=== PATIENT | female | born 1950 | race Caucasian/White ===

== ENCOUNTER → 2018-02-08 12:11 | Outpatient (REF) | payer BC, SELFPAY ==
[2018-02-08 13:16] LABS: Bilirubin Negative (Negative); Blood Small (Negative); Clarity Clear; Glucose Negative (Negative); Ketones Negative (Negative); Leukocyte Esterase Small (Negative); Nitrite Positive (Negative); Specific Gravity 1.015 (1.005-1.025); Urobilinogen 0.2 EU/dL (Up TO 0.2)
[2018-02-08 13:26] LABS: Bacteria Moderate HPF (Negative); C & S Indicated? Yes; Crystals Negative HPF (Negative); Epithelial Cells Few HPF (Negative); Mucus Moderate (Negative); Other Cells Few Renal (Negative); RBC 0-2 (0-2); WBC 20-50 HPF (0-5)
== END ==
LOC: NCHCN 12:11
PROVIDERS: PCP Family Medicine; Visit Provider Family Medicine
DX: R35.0 Frequency of micturition (principal); R10.9 Unspecified abdominal pain
CPT/HCPCS: 87077; 81003; 81015; 87086; 87186

== ENCOUNTER 2018-02-13 06:05 | Outpatient (RCR) | payer BC, SELFPAY ==
[2018-02-13] MEDS: Normal Saline Flush 10 ML SYR IVP (13:30)
[2018-02-14] MEDS: Normal Saline Flush 10 ML SYR IVP (13:11)
[2018-02-14 13:29] LABS: Anion Gap 7.5 mmol/L (3-11); BUN 11 mg/dL (7-18); CO2 27.5 mmol/L (21.0-32.0); Chloride 106 mmol/L (98-107); Glucose 94 mg/dL (70-100); Potassium 3.4 mmol/L (3.5-5.1); Sodium 141 mmol/L (136-145)
[2018-02-15] MEDS: Normal Saline Flush 10 ML SYR IVP (13:25)
[2018-02-16] MEDS: Normal Saline Flush 10 ML SYR IVP (13:10)
[2018-02-17] MEDS: Normal Saline Flush 10 ML SYR IVP (12:50)
[2018-02-18] MEDS: Normal Saline Flush 10 ML SYR IVP (13:04)
[2018-02-19] MEDS: Normal Saline Flush 10 ML SYR IVP (12:57)
== END 2018-03-10 ==
LOC: INF 08:06
PROVIDERS: PCP Family Medicine; Visit Provider Family Medicine
DX: N11.1 Chronic obstructive pyelonephritis (principal); A41.9 Sepsis, unspecified organism
CPT/HCPCS: 36415; 80048; 96365; J1335

== ENCOUNTER 2018-03-24 00:10 | Outpatient (CLI) | payer BC, SELFPAY ==
--- NOTE | 2018-03-24 08:50 | DI.US_ITS ---
SYMPTOM/DIAGNOSIS: LT URETERAL STONE, N20.1, ? HYDRONEPHROSIS, F/U URETEROSCOPY RENAL ULTRASOUND: Comparison is made with 02/09/[address] The kidneys are normal in size and show normal parenchymal thickness and echogenicity. No hydronephrosis or renal calculi are identified. The prevoid bladder volume measured 31 cc's. There is no postvoid residual. No bladder calculi or bladder mass is seen. There are no perinephric collections or free fluid in the pelvis. The liver is noted to show fatty infiltration. IMPRESSION: No evidence of hydronephrosis or other acute abnormality.
== END 2018-03-24 00:30 ==
PROVIDERS: PCP Family Medicine; Visit Provider Urology
DX: N20.1 Calculus of ureter (principal)
CPT/HCPCS: 76770

== ENCOUNTER 2018-04-03 12:26 | Outpatient (REF) | payer BC, SELFPAY ==
--- NOTE | 2018-04-03 09:50 | SKI_PTH ---
PATIENT: Leslie Magana LOC: [facility] U#:[id number] AGE/SX: 67/F ROOM: RE04/03/[address]: SHRUTHI Garza : 1950 BED: DIS: 04/03/2018 SPEC #: [id number] RECD: 04/03/18 18:10 STATUS: ALETHEA REJaz #: [id number] RAFIA: 04/03/18 09:[address]: Jarett Griffin DEPT: Surgical Specimen RECD BY: Nirali Willis ENTERED: 04/03/18 18:11 SP TYPE: MITCH LORENZANA DR: Jeni Mcgovern Tissues: 1 - SKIN BIOPSY(SHAVE/PUNCH) Procedures: SKIN LEVEL 4 Comments: [id number]
== END 2018-04-03 12:46 ==
LOC: LBN 12:26
PROVIDERS: PCP Family Medicine; Visit Provider Physician Assistant
DX: L82.1 Other seborrheic keratosis (principal)
CPT/HCPCS: 88305

== ENCOUNTER 2018-05-25 09:07 | Outpatient (REF) | payer BC, SELFPAY ==
--- NOTE | 2018-05-25 08:30 | PAPFT_PTH ---
PATIENT: Leslie Magana LOC: [facility] U#:[id number] AGE/SX: 68/F ROOM: RE05/25/[address]: Jeni Mcgovern : 1950 BED: DIS: 05/25/2018 SPEC #: [id number] RECD: 05/25/18 12:52 STATUS: ALETHEA REQ #: [id number] RAFIA: 05/25/18 08:[address]: Jeni Mcgovern DEPT: [facility] Cytology RECD BY: Nirali Willis Tissues: 1 - CX/ENDOCX FOR PAP SMEARS Procedures: PAP THIN PREP/UVM Screening HPV DNA PROBE Comments: [id number]
[2018-05-25 14:00] LABS: Bilirubin Negative (Negative); Blood Trace-lysed (Negative); Clarity Cloudy; Glucose Negative (Negative); Ketones Negative (Negative); Leukocyte Esterase Trace (Negative); Nitrite Positive (Negative); Specific Gravity >= 1.030 (1.005-1.025); Urobilinogen 0.2 EU/dL (Up TO 0.2); pH 5.5 (5-8)
[2018-05-25 14:35] LABS: Bacteria Many HPF (Negative); Crystals Many Amorphous HPF (Negative); Epithelial Cells Rare HPF (Negative); RBC 0-2 (0-2)
[2018-05-25 14:36] LABS: C & S Indicated? Yes; Casts Negative LPF (Negative); Mucus Negative (Negative)
== END 2018-05-25 09:27 ==
LOC: NCHCN 09:07
PROVIDERS: PCP Family Medicine; Visit Provider Family Medicine
DX: N20.0 Calculus of kidney (principal); Z12.4 Encounter for screening for malignant neoplasm of cervix; Z11.51 Encounter for screening for human papillomavirus (HPV)
CPT/HCPCS: 87077; 88142; 81003; 81015; 87086; 87186; 87624

== ENCOUNTER 2018-06-08 01:27 | Outpatient (CLI) | payer BC, SELFPAY ==
--- NOTE | 2018-06-08 16:10 | DI.MAMMO_ITS ---
SYMPTOMS/DIAGNOSIS: SCREENING, Z12.31 MAMMOGRAM: Mammograms were interpreted according to the usual protocol including computer analysis with CAD system, tomosynthesis and C view imaging. The breasts are heterogeneously dense with multiple focal areas of asymmetric density seen in both breasts. No dominant mass or clumped microcalcifications seen. Examination is compared with multiple previous examinations including May 2017 and there has been no gross interval change in appearance in comparison with the previous studies. CONCLUSION: No specific evidence of malignancy at this time. Routine screening examinations are suggested at yearly intervals in this age group according to the ACS/ACR guidelines. Category 1, breast density category C. MQSA ASSESSMENT OF FINDINGS: Negative. Category 1. Patient will receive a letter notifying them of these results. Bi-RADS category C. The breasts are heterogeneously dense, which may obscure small masses.
== END 2018-06-08 01:47 ==
PROVIDERS: PCP Family Medicine; Visit Provider Family Medicine
DX: Z12.31 Encounter for screening mammogram for malignant neoplasm of breast (principal)
CPT/HCPCS: 77063; 77067

== ENCOUNTER 2018-06-26 01:53 | Outpatient (CLI) | payer BC, SELFPAY ==
[2018-06-26 15:47] LABS: Bilirubin Negative (Negative); Blood Negative (Negative); Clarity Sl Cloudy; Glucose Negative (Negative); Ketones Trace mg/dL (Negative); Leukocyte Esterase Negative (Negative); Nitrite Positive (Negative); Specific Gravity >= 1.030 (1.005-1.025); Urobilinogen 0.2 EU/dL (Up TO 0.2); pH 5.5 (5-8)
[2018-06-26 16:54] LABS: Bacteria Many HPF (Negative); C & S Indicated? Yes; Casts Negative LPF (Negative); Crystals Negative HPF (Negative); Epithelial Cells Few HPF (Negative); Mucus Negative (Negative); Other Cells Rare Renal (Negative); RBC Negative (0-2); WBC Negative HPF (0-5)
== END 2018-06-26 02:13 ==
PROVIDERS: PCP Family Medicine; Visit Provider Family Medicine
DX: N20.0 Calculus of kidney (principal)
CPT/HCPCS: 87077; 81003; 81015; 87086; 87186

== ENCOUNTER 2019-07-13 13:00 | Outpatient (CLI) | payer MEDICARE, BC, SELFPAY | END 2019-07-13 13:20 | PROVIDERS: PCP Family Medicine; Visit Provider Urology | DX: R82.71 Bacteriuria (principal) | CPT/HCPCS: 81003; 99213 ==

== ENCOUNTER 2019-07-23 17:46 | Outpatient (REF) | payer MEDICARE, SELFPAY ==
[2019-07-23 19:08] LABS: ALT 95 U/L (14-59); AST 55 U/L (15-37); Albumin 3.8 g/dL (3.4-5.0); Alkaline Phosphatase 113 U/L (46-116); Anion Gap 11.1 mmol/L (3-11); BUN 11 mg/dL (7-18); Bilirubin, Total 0.6 mg/dL (0.2-1.0); CO2 25.9 mmol/L (21.0-32.0); CREATININE 0.77 mg/dL (0.55-1.02); Calcium 8.5 mg/dL (8.5-10.1); Chloride 108 mmol/L (98-107); Glucose 123 mg/dL (74-106); Potassium 3.7 mmol/L (3.5-5.1); Sodium 145 mmol/L (136-145); Total Protein 6.9 g/dL (6.4-8.2)
[2019-07-23 19:09] LABS: Vitamin D 25 Total 10.8 ng/ml (30-100)
[2019-07-25 12:10] LABS: Parathyroid Hormone,Intact 74 pg/mL (19-88)
== END 2019-07-23 18:06 ==
LOC: NCHCN 17:46
PROVIDERS: PCP Family Medicine; Visit Provider Family Medicine
DX: M81.0 Age-related osteoporosis without current pathological fracture (principal); Z79.899 Other long term (current) drug therapy
CPT/HCPCS: 80053; 82306; 83970

== ENCOUNTER 2019-08-21 01:03 | Outpatient (CLI) | payer MEDICARE, BC, SELFPAY ==
--- NOTE | 2019-08-21 08:12 | DI.MAMMO_ITS ---
EXAM: MAMMO SCREENING CLINICAL HISTORY: SCREENING, Z12.21 TECHNIQUE: Mammograms were interpreted according to the usual protocol including computer analysis w [employer] CAD system, tomosynthesis and C-view imaging. COMPARISON: 2009 through 2017 FINDINGS: The breasts are composed of heterogeneously dense fibroglandular densities, Breast Density category C . Right breast: No suspicious masses or suspicious microcalcifications are seen. No skin thickening or abnormal axillary lymph nodes are seen. There has been no significant change from prior exams. Left breast: There is an area of focal nodular asymmetry in the medial left breast centrally. No def inite corresponding abnormality is seen on the MLO view. There is dense tissue in the superior left breast. No suspicious calcifications are seen. Spot compression views are requested for further rohit luation. Ultrasound may also be indicated at that time. IMPRESSION: Right breast: BIRADS Category 1, negative mammogram. Yearly screening mammography is recommended. Left breast: BI-RADS Cat 0 - Assessment Incomplete: Need additional imaging evaluation BREAST DENSITY: The mammogram demonstrates the patient's breast tissue is dense. Dense breast tissue is very common and is not abnormal but dense breast tissue can make it harder to find cancer on a ma mmogram. Also, dense breast tissue may increase breast cancer risk. This information about the result of the mammogram report was provided to the patient to raise their awareness. Use this report when y ou speak with the patient about their risks for breast cancer, which includes their family history. A t that time, you may recommend additional screening tests (Ultrasound or MRI) as they might be useful based on their risk. A negative radiographic report should not delay biopsy if a dominant or clinically suspicious mass is present. Up to ten percent of cancers are not identified on mammography. A negative report may reinforce clinical impression. Adenosis and dense breasts may obscure an underlying neoplasm. False positive reports average 6 to 10%.
== END 2019-08-21 01:23 ==
PROVIDERS: PCP Family Medicine; Visit Provider Family Medicine
DX: Z12.31 Encounter for screening mammogram for malignant neoplasm of breast (principal); R92.8 Other abnormal and inconclusive findings on diagnostic imaging of breast
CPT/HCPCS: 77063; 77067

== ENCOUNTER 2019-08-24 03:40 | Outpatient (CLI) | payer MEDICARE, BC, SELFPAY ==
--- NOTE | 2019-08-24 | DI.MAMMO_ITS ---
EXAM: MG MAMMO SCREEN CALL BACK UNI CLINICAL HISTORY: F/U ABNL MAMMO, FOCAL NODULAR ASYMMETRY MEDIAL LT BREAST CENTRALLY. TECHNIQUE: Craniocaudal and mediolateral oblique Full Field Digital Mammography views of the left br east with Computer Aided Diagnosis followed by Tomosynthesis and left breast ultrasound. COMPARISON: Priors available for comparison. FINDINGS: Mammography/Tomosynthesis: Masses/Architectural Distortion: There is an ovoid density in the posterior medial left breast seen o n the additional views which appears stable. Nonspecific nodularity of the medial left breast is aga in noted. No suspicious masses or microcalcifications are seen. Microcalcifications: No suspicious pleomorphic-type are seen. Skin Thickening/Nipple Retraction: None. Left breast US: Echotexture: Normal appearance of the glandular tissue. Shadowing: No suspicious foci. Cyst: None. Solid lesions: None seen. Ductal dilation: None. IMPRESSION: 1. No definite evidence for malignancy at this time. 2. A follow-up six-month left mammogram is recommended for re-evaluation. BI-RADS Cat 3 - 6 month - Probably Benign Finding: Recommend follow-up mammography in 6 months Breast Density - Category C - Heterogeneously dense The findings were discussed with the patient on the date of the examination. The mammogram demonstrates the patient's breast tissue is dense. Dense breast tissue is very common a nd is not abnormal but dense breast tissue can make it harder to find cancer on a mammogram. Also, de nse breast tissue may increase their breast cancer risk. This information about the result of the [facility] mogram report was provided to the patient to raise their awareness. Use this report when you speak wi th the patient about their risks for breast cancer, which includes their family history. At that time , you may recommend for more screening tests (Ultrasound or MRI) as they might be useful based on the ir risk. A negative radiographic report should not delay biopsy if a dominant or clinically suspicious mass is present. Up to ten percent of cancers are not identified on mammography. A negative report may reinforce clinical impression. Adenosis and dense breasts may obscure an underlying neoplasm. False positive reports average 6 to 10%. Patient will receive a letter notifying them of these results.
== END 2019-08-24 04:00 ==
PROVIDERS: PCP Family Medicine; Visit Provider Family Medicine
DX: Z12.31 Encounter for screening mammogram for malignant neoplasm of breast (principal); R92.8 Other abnormal and inconclusive findings on diagnostic imaging of breast; N60.82 Other benign mammary dysplasias of left breast
CPT/HCPCS: 76642; 77063; 77067

== ENCOUNTER 2020-01-07 19:59 | Outpatient (REF) | payer MEDICARE, BC, SELFPAY ==
[2020-01-07 19:36] LABS: HCT 45.1 % (36.0-46.0); HGB 14.9 g/dL (12.0-15.5); Mean Corpuscular Hemoglobin 29.5 pg (27.0-33.0); Mean Corpuscular Volume 89.3 fL (80-95); Mean Platelet Volume 10.9 fL (8.0-11.0); Platelet Count 326 x1000/uL (130-400); RBC 5.05 m/cumm (4.00-5.20); RBC Distribution Width 13.9 % (11.7-14.6); White Blood Cell Count 7.76 k/cumm (4.4-10.8)
[2020-01-07 20:05] LABS: Iron 112 ug/dL (50-170); Total Iron Binding Capacity 363 ug/dL (250-450); Transferrin Sat 31 % (15-50)
[2020-01-07 20:09] LABS: Hemoglobin A1C 6.3 % (3.8-5.6)
[2020-01-07 20:14] LABS: ALT 66 U/L (14-59); AST 37 U/L (15-37); Albumin 4.2 g/dL (3.4-5.0); Alkaline Phosphatase 108 U/L (46-116); Bilirubin, Direct 0.12 mg/dL (0.00-0.20); Bilirubin, Total 0.7 mg/dL (0.2-1.0); Ferritin 147 ng/mL (8-252); Total Protein 7.3 g/dL (6.4-8.2)
[2020-01-09 11:17] LABS: Hepatitis B Surface Ag Negative (Negative)
[2020-01-09 11:20] LABS: HBs Antibody, Quant 4.8 mIU/mL (See Note); Hepatitis B Surface Ab Negative (See Note)
[2020-01-09 12:01] LABS: Hepatitis C Ab w Rflx HCV PCR Negative (Negative)
[2020-01-09 12:03] LABS: Hep A Total Ab w Rflx IgM Positive (Negative)
[2020-01-10 11:52] LABS: Hep A Antibody IgM Negative (Negative)
== END 2020-01-07 20:19 ==
LOC: NCHCN 19:59
PROVIDERS: PCP Family Medicine; Visit Provider Family Medicine
DX: K76.0 Fatty (change of) liver, not elsewhere classified (principal); R79.89 Other specified abnormal findings of blood chemistry; E55.9 Vitamin D deficiency, unspecified; Z11.59 Encounter for screening for other viral diseases; R73.09 Other abnormal glucose; Z01.84 Encounter for antibody response examination
CPT/HCPCS: 80076; 85027; 86706; 86709; 86803; 87340; 82728; 83036; 83540; 83550; 86704

== ENCOUNTER 2020-01-21 19:22 | Outpatient (REF) | payer MEDICARE, BC, SELFPAY ==
[2020-01-24 04:54] LABS: Vitamin D 25 Total 47.9 ng/ml (30-100)
== END 2020-01-21 19:42 ==
LOC: NCHCN 19:22
PROVIDERS: PCP Family Medicine; Visit Provider Family Medicine
DX: E55.9 Vitamin D deficiency, unspecified (principal)
CPT/HCPCS: 82306

== ENCOUNTER 2020-03-06 02:23 | Outpatient (CLI) | payer MEDICARE, BC, SELFPAY ==
--- NOTE | 2020-03-06 14:39 | DI.MAMMO_ITS ---
EXAM: MG MAMMO DIAGNOSTIC UNI CLINICAL HISTORY: DIAGNOSTIC, F/U ABNL MAMMO, 6 MONTH F/U,R92.8 TECHNIQUE: Mammograms were interpreted according to the usual protocol including computer analysis w [employer] CAD system, tomosynthesis and C-view imaging. COMPARISON: FINDINGS: Today's mammogram of the left breast was obtained to follow up in area of nodularity seen medially in left breast on prior mammogram of August 2019. On today's examination the findings are unchanged. No new mass or clumped microcalcification seen. IMPRESSION: No specific evidence of malignancy at this time. I would suggest that routine screening examination s resume with a bilateral mammogram in 6 months. BI-RADS Cat 3 - 6 month - Probably Benign Finding: Recommend follow-up mammography in 6 months Breast Density - Category C - Heterogeneously dense
== END 2020-03-06 02:43 ==
PROVIDERS: PCP Family Medicine; Visit Provider Family Medicine
DX: R92.8 Other abnormal and inconclusive findings on diagnostic imaging of breast (principal); R92.2 Inconclusive mammogram
CPT/HCPCS: 77061; 77065; G0279

== ENCOUNTER 2020-07-25 16:04 | Outpatient (REF) | payer MEDICARE, BC, SELFPAY ==
[2020-07-25 13:52] LABS: HGB 14.2 g/dL (11.2-15.7); MCHC 32.3 % (32.0-36.0); MPV 10.5 fL (8.0-11.0); Platelet Count 290 10^3/uL (130-400); RBC 4.89 10^6/uL (3.93-5.22); RDW 12.9 % (11.7-14.6); RDW-SD 42.3 fL; WBC 6.86 10^3/uL (4.4-10.8)
[2020-07-25 14:22] LABS: ALT 38 U/L (14-59); AST 24 U/L (15-37); Albumin 4.1 g/dL (3.4-5.0); Alkaline Phosphatase 109 U/L (46-116); Anion Gap 7.5 mmol/L (3-11); BUN 16 mg/dL (7-18); Bilirubin, Total 0.6 mg/dL (0.2-1.0); CO2 27.5 mmol/L (21.0-32.0); Calcium 9.7 mg/dL (8.5-10.1); Chloride 104 mmol/L (98-107); Glucose 99 mg/dL (74-106); Potassium 4.3 mmol/L (3.5-5.1); Sodium 139 mmol/L (136-145); TSH (W/Ref FT4) 2.13 uIU/mL (0.36-3.74); Total Protein 7.3 g/dL (6.4-8.2)
[2020-07-25 14:32] LABS: Hemoglobin A1C 5.9 % (<5.7)
[2020-07-28 05:51] LABS: Vitamin D 25 Total 36.4 ng/ml (30-100)
== END 2020-07-25 16:24 ==
LOC: NCHCN 16:04
PROVIDERS: PCP Family Medicine; Visit Provider Family Medicine
DX: E55.9 Vitamin D deficiency, unspecified (principal); R73.03 Prediabetes; R63.4 Abnormal weight loss; Z00.00 Encounter for general adult medical examination without abnormal findings
CPT/HCPCS: 80053; 82306; 85027; 83036; 84443

== ENCOUNTER → 2020-08-26 15:25 | Outpatient (BNVA) | payer MEDICARE, SELFPAY | PROVIDERS: PCP Family Medicine; Referring Provider Family Medicine; Visit Provider Nurse Practitioner Gerontology | DX: N10 Acute pyelonephritis (principal) | CPT/HCPCS: 81003; 99213 ==

== ENCOUNTER 2020-10-07 02:33 | Outpatient (CLI) | payer MEDICARE, BC, SELFPAY ==
--- NOTE | 2020-10-07 | DI.MAMMO_ITS ---
EXAM: MAMMO SCREENING CLINICAL HISTORY: SCREENING, Z12.31 TECHNIQUE: Mammograms were interpreted according to the usual protocol including computer analysis w [employer] CAD system, tomosynthesis and C-view imaging. COMPARISON: 2010 through 2019 FINDINGS: The breasts are composed of heterogeneously dense fibroglandular densities, Breast Density category C . No suspicious masses or suspicious microcalcifications are seen. Vascular calcifications are inciden tally noted. No skin thickening or abnormal axillary lymph nodes are seen. There has been no significant change from prior exams. IMPRESSION: BI-RADS Category 1, Negative mammogram. Yearly screening mammography is recommended. Breast Density Category C, heterogeneously Dense. The mammogram demonstrates the patient's breast tissue is dense. Dense breast tissue is very common a nd is not abnormal but dense breast tissue can make it harder to find cancer on a mammogram. Also, de nse breast tissue may increase breast cancer risk. This information about the result of the mammogram report was provided to the patient to raise their awareness. Use this report when you speak with the patient about their risks for breast cancer, which includes their family history. At that time, you may recommend additional screening tests (Ultrasound or MRI) as they might be useful based on their r isk. A negative radiographic report should not delay biopsy if a dominant or clinically suspicious mass is present. Up to ten percent of cancers are not identified on mammography. A negative report may reinforce clinical impression. Adenosis and dense breasts may obscure an underlying neoplasm. False positive reports average 6 to 10%.
--- NOTE | 2020-10-07 | DI.DEXA_ITS ---
EXAM: XR DEXA BONE DENSITY W/WO LORRAINE CLINICAL HISTORY: OSTEOPOROSIS, M81.0 TECHNIQUE: Routine DEXA evaluation of the lumbar spine, hip, or forearm. COMPARISON: Prior DEXA scan May 2017 FINDINGS: Performed on a [employer] unit. Lateral image: No compression fracture evident. Lumbar Spine total T-score: -2.7 . Prior 2017 reading was -3.0 Hip total T-score:-1.6. Prior May 2017 reading was also -1.6. Independent reading the level of the femoral neck yields a T-score of -2.6 Forearm total T-score: -3.0 IMPRESSION: Bone mineral density measures in the osteoporosis range. Fracture risk is high. Note: Any spine fracture indicates 5x risk for subsequent spine fracture and 2x risk for subsequent h ip fracture. World Health Organization criteria for BMD interpretation classify patients: Normal...... T- Score at or above -1.0 Osteopenic... T- Score between -1.0 and -2.5 Osteoporosis... T-Score at or below -2.5
== END 2020-10-07 02:53 ==
PROVIDERS: PCP Family Medicine; Visit Provider Family Medicine
DX: Z12.31 Encounter for screening mammogram for malignant neoplasm of breast (principal); M81.0 Age-related osteoporosis without current pathological fracture
CPT/HCPCS: 77063; 77067; 77080

== ENCOUNTER 2021-07-27 15:26 | Outpatient (REF) | payer MEDICARE, SELFPAY ==
[2021-07-27 15:04] LABS: MCH 28.6 pg (27.0-33.0); MCHC 31.1 % (32.0-36.0); MCV 91.8 fL (80-95); MPV 10.5 fL (8.0-11.0); Platelet Count 253 10^3/uL (130-400); RDW 12.8 % (11.7-14.6); RDW-SD 43.2 fL; WBC 5.94 10^3/uL (4.4-10.8)
[2021-07-27 15:20] LABS: Hemoglobin A1C 5.7 % (<5.7)
[2021-07-27 15:21] LABS: ALT 51 U/L (14-59); AST 27 U/L (15-37); Albumin 3.9 g/dL (3.4-5.0); Alkaline Phosphatase 110 U/L (46-116); BUN 19 mg/dL (7-18); Bilirubin, Total 0.4 mg/dL (0.2-1.0); CREATININE 0.8 mg/dL (0.55-1.02); Calcium 8.9 mg/dL (8.5-10.1); Calculated LDL 142 mg/dL (<100); Chloride 103 mmol/L (98-107); Cholesterol 232 mg/dL (<200); Glucose 98 mg/dL (74-106); HDL Cholesterol 55 mg/dL (40-60); Potassium 3.9 mmol/L (3.5-5.1); Sodium 140 mmol/L (136-145); Triglyceride 176 mg/dL (<150)
[2021-07-27 15:53] LABS: Vitamin D 25 Total 36.5 ng/mL (30-100)
== END 2021-07-27 15:27 | disposition home or self-care (01) ==
LOC: NCHCN 15:26
PROVIDERS: PCP Family Medicine; Visit Provider Family Medicine
DX: K76.0 Fatty (change of) liver, not elsewhere classified (principal); R73.03 Prediabetes; E55.9 Vitamin D deficiency, unspecified
CPT/HCPCS: 80053; 80061; 82306; 85027; 83036

== ENCOUNTER → 2021-09-01 09:44 | Outpatient (BNVA) | payer MEDICARE, SELFPAY | PROVIDERS: PCP Family Medicine; Referring Provider Family Medicine; Visit Provider Nurse Practitioner Gerontology | DX: R82.71 Bacteriuria (principal) | CPT/HCPCS: 81003; 99213 ==

== ENCOUNTER 2021-10-09 00:38 | Outpatient (CLI) | payer MEDICARE, SELFPAY ==
--- NOTE | 2021-10-09 10:00 | DI.MAMMO_ITS ---
Exam(s) MAMMO SCREENING EXAM: MAMMO SCREENING CLINICAL HISTORY: SCREENING, Z12.31 TECHNIQUE: Bilateral full field digital CC and MLO mammographic images were obtained with 3D tomosyn thesis and utilizing computer aided detection (CAD). COMPARISON: Available for comparison. FINDINGS: Masses/Architectural Distortion: There is a question of an asymmetric density in the outer left breas t seen on the craniocaudad view 6 cm from the nipple this area should be further evaluated with spot compression views. Microcalcifications: No suspicious pleomorphic-type are seen. Skin Thickening/Nipple Retraction: None. IMPRESSION: 1. Asymmetric density in the outer left breast on the CC view. 2. This area should be further evaluated with a spot compression view. Ultrasound may be indicated a t that time. BI-RADS Category 0 - Assessment Incomplete: Need additional imaging evaluation Breast Density - Category C - Heterogeneously dense Breast density category C or D implies that the patient has dense breast tissue. Dense breast tissue is very common and is not abnormal but dense breast tissue can make it harder to find cancer on a ma mmogram. Also, dense breast tissue may increase their breast cancer risk. This information about the result of the mammogram report was provided to the patient to raise their awareness. Use this report when you speak with the patient about their risks for breast cancer, which includes their family hist ory. At that time, you may recommend for more screening tests (Ultrasound or MRI) as they might be us eful based on their risk. A negative radiographic report should not delay biopsy if a dominant or clinically suspicious mass is present. Up to ten percent of cancers are not identified on mammography. A negative report may reinforce clinical impression. Adenosis and dense breasts may obscure an underlying neoplasm. False positive reports average 6 to 10%. Patient will receive a letter notifying them of these results.
== END 2021-10-09 00:58 ==
PROVIDERS: PCP Family Medicine; Visit Provider Family Medicine
DX: Z12.31 Encounter for screening mammogram for malignant neoplasm of breast (principal); R92.8 Other abnormal and inconclusive findings on diagnostic imaging of breast
CPT/HCPCS: 77063; 77067

== ENCOUNTER → 2021-10-20 01:56 | Outpatient (CLI) | payer MEDICARE, SELFPAY ==
--- NOTE | 2021-10-20 | DI.US_ITS ---
Exam(s) MG MAMMO SCREEN CALL BACK UNI US BREAST LT LIMITED EXAM: MG MAMMO SCREEN CALL BACK UNI and U/S breast LT limited CLINICAL HISTORY: F/U ABNL MAMMO, ASYMMETRIC DENSITY IN OUTER LT BREAST 6 CM FROM NIPPLE. TECHNIQUE: Craniocaudal and mediolateral oblique Full Field Digital Mammography views of the left br east with Computer Aided Diagnosis followed by Tomosynthesis and left breast ultrasound. COMPARISON: Comparison with prior examinations. FINDINGS: Mammography/Tomosynthesis: Masses/Architectural Distortion: None seen. Microcalcifictions: No suspicious pleomorphic-type are seen. Skin Thickening/Nipple Retraction: None. Limited left breast US: Echotexture: Normal appearance of the glandular tissue. Shadowing: No suspicious foci. Cyst: None. Solid lesions: None seen. Ductal dilation: None. IMPRESSION: 1. No evidence of malignancy is noted. 2. Unless there is more urgent need, follow-up screening mammography is recommended, as per [place] [employer] guidelines. 3. The findings were discussed with the patient on the date of the examination. BI-RADS Category 1 - Negative Breast Density - Category C - Heterogeneously dense Breast density Category C or D implies that the patient has dense breast tissue. Dense breast tissue can make it harder to find cancer on a mammogram. Dense breast tissue is also associated with an incr eased risk of breast cancer. This information about the result of the mammogram report was provided to the patient to raise their awareness. Use this report when you speak with the patient about their risks for breast cancer, which includes their family history. At that time, you may recommend additional screening tests (Ultrasoun d or MRI) as these tests may add significant information. A negative radiographic report should not delay biopsy if a dominant or clinically suspicious mass is present. Up to ten percent of cancers are not identified on mammography. A negative report may reinforce clinical impression. Adenosis and dense breasts may obscure an underlying neoplasm. False positive reports average 6 to 10%. Patient will receive a letter notifying them of these results.
== END ==
PROVIDERS: PCP Family Medicine; Visit Provider Family Medicine
DX: Z12.31 Encounter for screening mammogram for malignant neoplasm of breast (principal); R92.8 Other abnormal and inconclusive findings on diagnostic imaging of breast; N64.59 Other signs and symptoms in breast
CPT/HCPCS: 76642; 77063; 77067

== ENCOUNTER 2021-10-29 03:00 | Outpatient (CLI) | payer MEDICARE, SELFPAY | END 2021-10-29 03:01 | disposition home or self-care (01) | LOC: DS 03:01 | PROVIDERS: PCP Family Medicine; Visit Provider Dietitian, Registered ==

== ENCOUNTER 2021-11-06 01:23 | Outpatient (CLI) | payer MEDICARE, SELFPAY ==
--- NOTE | 2021-11-06 13:42 | W.NUTCONSULT ---
Date of service: 11/06/21 Time of Service: 13:42 Nutritional Consult ASSESSMENT: Leslie was referred for nutritional counseling for pre diabetes, osteoporosis and kidney stones. PMH: preDm, fatty infiltration of liver. Meds: include Vitamin D. Diet recall: eats 3 well balanced meals, eats mostly complex carbs, lean protein and healthy fats. Cooks most of meals at home. Exercise: walks 2 miles daily 5'4 135 lbs BMI: 23 Leslie reports losing 30 lbs in last couple of years by starting to walk daily and reduce her intake of sweetened beverages and junk foods. She reports her blood sugars and liver infiltrates have gone back to normal after weight loss. INTERVENTION: Reveiwed with Leslie how to follow diet that helps reduce risk of diabetes, kidney stones and builds bone. Recommend continue to follow current meal plan and continue walking on regular basis in order to keep her weight below 140 lbs. MONITORING AND EVALUATION: no follow up planned at this time. Time Spent in Nutritional Counseling and Treatment: 30
== END 2021-11-06 01:24 | disposition home or self-care (01) ==
LOC: DS 01:23
PROVIDERS: PCP Family Medicine; Visit Provider Dietitian, Registered

== ENCOUNTER 2022-07-22 15:20 | Outpatient (REF) | payer MEDICARE, SELFPAY ==
[2022-07-22 15:52] LABS: HCT 43.4 % (36.0-46.0); HGB 14.1 g/dL (11.2-15.7); MCH 29.3 pg (27.0-33.0); MCHC 32.5 % (32.0-36.0); MCV 90 fL (80-95); MPV 10.6 fL (8.0-11.0); Platelet Count 279 10^3/uL (130-400); RBC 4.82 10^6/uL (3.93-5.22); RDW 12.9 % (11.7-14.6); RDW-SD 42.8 fL; WBC 5.76 10^3/uL (4.4-10.8)
[2022-07-22 17:13] LABS: ALT 58 U/L (14-59); AST 46 U/L (15-37); Albumin 4.1 g/dL (3.4-5.0); Alkaline Phosphatase 115 U/L (46-116); Anion Gap 13.3 mmol/L (3-11); BUN 20 mg/dL (7-18); Bilirubin, Total 0.6 mg/dL (0.2-1.0); CO2 21.7 mmol/L (21.0-32.0); CREATININE 0.8 mg/dL (0.55-1.02); Calcium 8.8 mg/dL (8.5-10.1); Calculated LDL 161 mg/dL (<100); Chloride 106 mmol/L (98-107); Cholesterol 246 mg/dL (<200); Estimated GFR 79.22 (mL/min/1.73m2); Glucose 104 mg/dL (74-106); HDL Cholesterol 57 mg/dL (40-60); Sodium 141 mmol/L (136-145); Total Protein 7.5 g/dL (6.4-8.2); Triglyceride 144 mg/dL (<150)
[2022-07-22 18:54] LABS: Hemoglobin A1C 5.8 % (<5.7)
== END 2022-07-22 15:21 | disposition home or self-care (01) ==
LOC: NCHCN 15:20
PROVIDERS: PCP Family Medicine; Visit Provider Family Medicine
DX: E55.9 Vitamin D deficiency, unspecified (principal); E78.5 Hyperlipidemia, unspecified; R73.03 Prediabetes; R79.89 Other specified abnormal findings of blood chemistry; Z00.00 Encounter for general adult medical examination without abnormal findings
CPT/HCPCS: 80053; 80061; 82306; 85027; 83036

== ENCOUNTER 2022-07-29 11:37 | Outpatient (CLI) | payer MEDICARE, SELFPAY ==
--- NOTE | 2022-07-29 | DI.RAD_ITS ---
Exam(s) XR FOOT RT COMPLETE EXAM: XR FOOT RT COMPLETE CLINICAL HISTORY: RT FOOT PAIN, M79.671, OVER METATARSAL; NO CLEAR INJURY. TECHNIQUE: 2D digital imaging was performed. COMPARISON: CR RIGHT FOOT COMPLETE from 05/22/2017 FINDINGS: 3 views Fracture lines in the proximal phalanx of the 3rd toe are no longer seen, having healed since 2017. There presently no acute fractures evident nor diastasis of the Lisfranc joint. No pes planus. Mild degenerative changes in the great toe metatarsophalangeal joint are unchanged. Moderate size inferi or calcaneal spur unchanged. No tarsal coalition evident. IMPRESSION: No new osseous findings when compared to May 2017. DATA REPOSITORY: RADIATION DOSE DELIVERED:
== END 2022-07-29 11:57 ==
LOC: DI 11:38
PROVIDERS: PCP Family Medicine; Visit Provider Family Medicine
DX: M79.671 Pain in right foot (principal); M77.41 Metatarsalgia, right foot; M77.31 Calcaneal spur, right foot
CPT/HCPCS: 73630

== ENCOUNTER → 2022-09-01 09:50 | Outpatient (BNVA) | payer MEDICARE, SELFPAY | PROVIDERS: PCP Family Medicine; Visit Provider Nurse Practitioner Gerontology | DX: R82.71 Bacteriuria (principal) | CPT/HCPCS: 81003; 99213 ==

== ENCOUNTER 2022-10-11 01:53 | Outpatient (CLI) | payer MEDICARE, SELFPAY ==
--- NOTE | 2022-10-11 | DI.MAMMO_ITS ---
Exam(s) MAMMO SCREENING EXAM: MAMMO SCREENING CLINICAL HISTORY: SCREENING,Z12.31. TECHNIQUE: Bilateral full field digital CC and MLO mammographic images were obtained with 3D tomosyn thesis and utilizing computer aided detection (CAD). COMPARISON: Prior mammograms were reviewed. FINDINGS: There has been no significant change in the appearance and distribution of the fibroglandular tissue. Asymmetric density located medially in the left breast on the CC views unchanged from prior studies. There are no obvious new spiculated masses nor malignant appearing microcalcification groups. There is no significant architectural distortion nor skin thickening-retraction. IMPRESSION: No radiographic evidence of malignancy. BI-RADS Category 1 - Negative Breast Density - Category C - Heterogeneously dense Breast density Category C or D implies that the patient has dense breast tissue. Dense breast tissue can make it harder to find cancer on a mammogram. Dense breast tissue is also associated with an incr eased risk of breast cancer. This information about the result of the mammogram report was provided to the patient to raise their awareness. Use this report when you speak with the patient about their risks for breast cancer, which includes their family history. At that time, you may recommend additional screening tests (Ultrasoun d or MRI) as these tests may add significant information. A negative radiographic report should not delay biopsy if a dominant or clinically suspicious mass is present. Up to ten percent of cancers are not identified on mammography. A negative report may reinforce clinical impression. Adenosis and dense breasts may obscure an underlying neoplasm. False positive reports average 6 to 10%. Patient will receive a letter notifying them of these results.
== END 2022-10-11 02:13 ==
LOC: DI 01:53
PROVIDERS: PCP Family Medicine; Visit Provider Family Medicine
DX: Z12.31 Encounter for screening mammogram for malignant neoplasm of breast (principal); N60.82 Other benign mammary dysplasias of left breast
CPT/HCPCS: 77063; 77067

== ENCOUNTER → 2022-11-04 10:15 | Outpatient (BNVA) | payer MEDICARE, SELFPAY | PROVIDERS: PCP Family Medicine; Referring Provider Family Medicine; Visit Provider Physical Therapy Assistant | DX: Z12.11 Encounter for screening for malignant neoplasm of colon (principal); Z86.010 Personal history of colon polyps ==

== ENCOUNTER 2022-11-25 06:12 | Day surgery (SDC) | payer MEDICARE, SELFPAY ==
--- NOTE | 2022-11-24 19:27 | W.PM.DSUDISC ---
Date of service: 11/25/22 Time of Service: 07:54 Discharge Plan Disposition Patient Disposition: Home Condition: Good Discharge Details Reason For Visit: Colonoscopy Attending Provider: Jamal Kaplan Primary Care Provider: Jeni Mcgovern Home Meds and New Rx's Prescriptions: Continued vitamin A palmitate 3,000 mcg (10,000 unit) capsule 3,000 mcg PO DAILY cholecalciferol (vitamin D3) 50 mcg (2,000 unit) capsule 50 mcg PO DAILY calcium carbonate [Calcium 600] 600 mg calcium (1,500 mg) tablet 600 mg PO DAILY multivitamin Tablet 1 tab PO DAILY imiquimod 2.5 % cream in metered-dose pump 1 pump topical QHS metronidazole [Metrogel] 1 % gel 1 applic TP DAILY cephalexin 500 mg capsule 500 mg PO TID Qty: 30 0RF Discontinued polyethylene glycol 3350 17 gram/dose powder 238 g PO ONCE Qty: 238 0RF Rx Instructions: take per colonoscopy instructions bisacodyl [Dulcolax (bisacodyl)] 5 mg tablet,delayed release (DR/EC) 5 mg PO ONCE Qty: 4 0RF Rx Instructions: take per colonoscopy instructions Discharge Instructions Instructions: Colorectal Polyps (GEN), Hemorrhoids (GEN) Additional Instructions: Leslie, we were able to complete your colonoscopy today without any difficulty. You have some very mild internal hemorrhoids. I also found 1 polyp in the ascending portion of your large intestine. It was extremely small. I removed it completely. I will be in touch when I have the results of the pathology report. 1. If tolerated, consume a soft, low fiber diet for 1-2 days. 2. Do not drive, drink alcohol, operate machinery, make critical decisions, or do activities that require coordination or balance for 24 hours. 3. Because air was put into your colon during the procedure, expelling air from your rectum (passing gas or farting) is normal. 4. You may not have a bowel movement for 1-3 days because of the colonoscopy prep. This is normal. 5. Go directly to the emergency room if you notice any of the following: Develop chills (warm to touch), or if you have a thermometer and your temperature is above 101 Difficulty breathing or difficultly swallowing Persistent vomiting Severe abdominal pain, other than gas cramps Severe chest pain Black, tarry stools Any bleeding ? exceeding one tablespoon 6. Call your physician if the site where your intravenous was started becomes red, swollen, painful, and warm to touch. 7. Your physician has reviewed your pre-procedure medications. Please continue to take those medications as previously ordered. You will be given specific information/education regarding any changes to your medications before leaving. Activity:: Activity as Tolerated Diet:: As Tolerated Discharge Orders Discharge Orders: Discharge Order (Routine); Ordered 11/24/22 Ordered By: Jamal Kaplan DS: Diagnosis Discharge Diagnosis (1) Screen for colon cancer: Status: Acute Asessment and Plan: I will follow-up on polypectomy results
--- NOTE | 2022-11-24 19:28 | W.COLOREPORT ---
Date of service: 11/25/22 Time of Service: 07:55 Colonoscopy Report Date of procedure: 11/25/22 Pre-op diagnosis general: Screening colonoscopy Post-op diagnosis procedure note: other (Internal hemorrhoids, colon polyp) Procedure: Colonoscopy polypectomy Surgeon: Jamal Kaplan Anesthesia Type: General:No Airway Estimated blood loss (mL): 5 Pathology: other (Ascending colon polyp) Complications: None Disposition: same day Indications: Phil is a 72 year old woman with a history of adenomatous polyps who is here for her next screening colonoscopy. Prep: Miralax/Dulcolax Procedure Start Time: 07:31 Procedure End Time: 07:45 Retraction Time: 9 Findings: Ascending colon polyp Procedure Description: After the induction of monitored anesthetic care, and with the patient in left lateral decubitus position, I began by performing an external anorectal exam.? Perineum and skin were normal, as was the anal verge.? There was no evidence of external hemorrhoids.? Next, I performed a digital rectal exam.? I did not appreciate any abnormal findings.? Next, I advanced a colonoscope into the rectal vault.? I performed retroflexion.? There are grade 1 internal hemorrhoids.? Using insufflation, I then advanced the colonoscope beyond the rectal folds and into the sigmoid colon before advancing towards the cecum.? The quality of the prep was outstanding.? The scope was noted to be in the cecum by identification of the ileocecal valve and appendiceal orifice.? I then began withdrawing the colonoscope using repeated irrigation as necessary for full evaluation of the colonic mucosa. Within the ascending colon was a single, sessile polyp. It was less than 0.25 cm. I removed it with cold forcep polypectomy, and there was no worrisome bleeding. once the scope was withdrawn to the level of the rectum, great care was taken to examine portions of the rectal folds.? Finally, the scope was withdrawn and the patient was brought to the same-day surgery recovery unit as the anesthetic wore off. ?The findings and instructions were shared with the patient prior to discharge.
[2022-11-25 06:20] VITALS: BP 111/73; PULSE 94; RESP 16; TEMP 36.5; O2SAT 99
--- NOTE | 2022-11-25 06:58 | W.ANESPRE ---
General Info Date of Service Date Performed: 11/25/22 Height: 5 ft 4 in Weight: 63.503 kg Body Mass Index (BMI): 24.0 Surgical Procedure: Operation Date: 11/25/22 07:35 Proposed Procedure Side Surgeon debra Kaplan MD Meds Allergies and Home Medications Allergies Allergy/AdvReac Type Severity Reaction Status Date / Time cashew nut Allergy Severe Hives Verified 11/25/22 06:37 amoxicillin [Amoxicillin] Allergy Intermediate rash/serum Unverified 11/25/22 06:37 sickness clindamycin Allergy Mild Skin Rash Unverified 11/25/22 06:37 sulfamethoxazole Allergy Mild Skin Rash Unverified 11/25/22 06:37 [From Bactrim] trimethoprim [From Bactrim] Allergy Mild Skin Rash Unverified 11/25/22 06:37 erythromycin base AdvReac Mild GI upset Unverified 11/25/22 06:37 [Erythromycin Base] Home Medication Medication Instructions Recorded metronidazole 1 % topical gel 1 applic topical DAILY 05/19/18 (Metrogel) cephalexin 500 mg capsule 500 mg PO TID antibiotic #30 caps 09/01/22 calcium carbonate 600 mg calcium 600 mg PO DAILY 11/04/22 (1,500 mg) tablet (Calcium) cholecalciferol (vitamin D3) 50 50 mcg PO DAILY 11/04/22 mcg (2,000 unit) capsule imiquimod 2.5 % topical cream in a 1 pump topical QHS 11/04/22 pump multivitamin 1 tab PO DAILY 11/04/22 vitamin A palmitate 3,000 mcg 3,000 mcg PO DAILY 11/04/22 (10,000 unit) capsule Current Visit Medications: Current Medications Generic Name Dose Route Start Last Admin Trade Name Freq PRN Reason Stop Dose Admin Hyoscyamine Sulfate 0.125 mg 11/24/22 19:30 Hyoscyamine 0.125 Mg Sl/Oral/Chew SL 12/24/22 19:29 DIRECTED PRN Ringer's Solution 1,000 mls @ 80 mls/hr 11/25/22 06:00 IV 12/24/22 23:59 INFUSION NANI IV Miscellaneous Supplies 1 each 11/25/22 06:00 Iv Access IV 12/24/22 23:59 DIRECTED NANI Ondansetron HCl 4 mg 11/24/22 19:30 Ondansetron 4 Mg/2 Ml Vial IVP 12/24/22 19:29 Q4H PRN PRN Nausea / Vomiting Sodium Chloride 0 ml 11/25/22 06:00 Normal Saline Flush 10 Ml Syr IV 12/24/22 23:59 PRN PRN Sodium Chloride 0 ml 11/25/22 06:00 Normal Saline 10 Ml Vial IJ 12/24/22 23:59 DIRECTED PRN Sterile Water 0 ml 11/25/22 06:00 Water,Injection,Sterile 10 Ml Vial IJ 12/24/22 23:59 DIRECTED PRN PFSH Active Problems Active Problems: Problem Status Onset Code Screen for colon cancer Z12.11 Wart B07.9 Foot pain, right M79.671 Knee pain, left M25.562 Asymptomatic bacteriuria R82.71 Neoplasm of unspecified behavior of bone, soft tissue, and skin D49.2 Left nephrolithiasis N20.0 Pyelonephritis, acute N10 Sepsis A41.9 Medical History Medical History Family history of cervical cancer Fatty infiltration of liver History of adenomatous polyp of colon Nephrolithiasis Osteoporosis Prediabetes Rosacea Vitamin D deficiency Surgical History Surgical History Colonoscopy - MAC (10/25/17) Extraction of cataract bilat Tonsillectomy Tobacco Smoking/Tobacco Use Status: Never Alcohol Alcohol Intake: current Alcohol intake frequency: holidays/special occasions only Substance Use Substance use: Never Substance use type: does not use Vital Signs and Lab Results Vital Signs Most Recent Vital Signs in EMR: Temp Pulse Resp BP Pulse Ox 36.5 C 94 H 16 111/73 99 11/25/22 06:20 11/25/22 06:20 11/25/22 06:20 11/25/22 06:20 11/25/22 06:20 Lab Results Blood Type / Crossmatch: No Data to Display Complete Blood Count: No Data to Display Complete Metabolic Panel: No Data to Display Liver Function Panel: No Data to Display Coagulation Panel: No Data to Display Cardiac Panel: No Data to Display Arterial Blood Gas: No Data to Display Venous Blood Gas: No Data to Display Pancreas Panel: No Data to Display Thyroid Panel: No Data to Display Infectious Disease: No Data to Display Blood Cultures: No Data to Display Toxicology Panel: No Data to Display Anesthesia Assessment and Plan Anesthesia History Personal History: No History of Anesthesia Complications Family History: No Family History of Anesthesia Complications Exercise Tolerance Exercise Tolerance: Metabolic Equivalents>4 Pertinent Negatives Pertinent Negatives: No Symptoms of GERD, No Major Cardiovascular Symptoms or Complaints and No Major Pulmonary Symptoms or Complaints Cardiac & Pulmonary Exam Cardiac Exam: Normal S1/S2 Heart Sounds Pulmonary Exam: Clear Bilateral Breath Sounds Implantable Cardiac Device Does patient have a Pacemaker or an ICD?: No Airway Exam Known Difficult Airway: No Mallampati Class: 2 Mouth Opening: Normal (> 3cm) Thyromental Distance: Greater than 3 cm Neck Range of Motion: Full ROM Neck Circumference: Normal Teeth Condition: Normal Dentition ASA Classification ASA Score: ASA 2 Emergency Case?: No NPO Status NPO Status: NPO Clears >2 hours, Solids >8 hours Anesthesia Plan Resuscitation Status: Full Code Anesthesia Technique: General Anesthesia Airway Planned: Natural Airway Monitors Used: Standard Monitors
[2022-11-25] MEDS: Lactated Ringers 1,000 ML 80 ML IV (07:00)
[2022-11-25 07:01] VITALS: BMI 24.0
--- NOTE | 2022-11-25 07:40 | BOWEL_PTH ---
PATIENT: Leslie Magana LOC: [facility] U#:[id number] AGE/SX: 72/F ROOM: RE11/25/[address]: Jamal Kaplan MD : 1950 BED: DIS: 11/25/2022 SPEC #: [id number] RECD: 11/25/22 12:53 STATUS: ALETHEA REQ #: [id number] RAFIA: 11/25/22 07:[address]: Jamal Kaplan DEPT: Surgical Specimen RECD BY: Nirali Willis ENTERED: 11/25/22 12:53 SP TYPE: Bowel OTHR DR: Jeni Mcgovern Tissues: 1 - BIOPSY BOWEL Procedures: GROSS AND MICRO LEVEL 4 Comments: [id number]
[2022-11-25 07:50] VITALS: BP 82/54; PULSE 77; RESP 16; TEMP 36.6; O2SAT 98
[2022-11-25 08:12] VITALS: PULSE 78; RESP 18; TEMP 36.6; O2SAT 98
--- NOTE | 2022-11-25 08:19 | W.ANESPOSTOP ---
Postoperative Evaluation Date, Time and Location Date Performed: 11/25/22 Time Performed: 08:05 Patient Location: Day Surgery Unit Vital Signs Most Recent Imported Vital Signs: Most Recent Vital Signs Temp Pulse Resp BP Pulse Ox 36.6 C 78 18 82/54 L 98 11/25/22 08:12 11/25/22 08:12 11/25/22 08:12 11/25/22 07:50 11/25/22 08:12 Pain Score Most Recent Pain Score: Most Recent Pain Score Pain Level 0 11/25/22 08:12 Assessment Mental Status: Awake (Alert & Oriented to Patient Baseline) Airway and Respiratory Function: Patent airway with normal (patient baseline) respiratory exam Cardiovascular Function: Hemodynamically Stable Hydration Status: Adequately Hydrated Nausea & Vomiting: No Nausea or Vomiting Pain: Pt. Denies Any Pain Peripheral Nerve Block: Patient did not receive a nerve block
[2022-11-25 08:22] VITALS: BP 93/68; PULSE 67; RESP 18; TEMP 36.6; O2SAT 95
== END 2022-11-25 08:45 | disposition home or self-care (01) ==
PROVIDERS: PCP Family Medicine; Visit Provider Surgery
PROC: 0DJD8ZZ Inspection of Lower Intestinal Tract, Via Natural or Artificial Opening Endoscopic (ICD-10-PCS; CPT 45378; principal; 2022-11-25 07:30)
DX: Z12.11 Encounter for screening for malignant neoplasm of colon (principal); K63.5 Polyp of colon; Z86.010 Personal history of colon polyps; K76.0 Fatty (change of) liver, not elsewhere classified; R73.03 Prediabetes; E55.9 Vitamin D deficiency, unspecified; K64.8 Other hemorrhoids
CPT/HCPCS: 45380; 88305

== ENCOUNTER 2023-07-27 08:41 | Outpatient (REF) | payer MEDICARE, SELFPAY ==
[2023-07-27 15:13] LABS: HCT 44.9 % (36.0-46.0); HGB 14.3 g/dL (11.2-15.7); MCH 28.6 pg (27.0-33.0); MCHC 31.8 % (32.0-36.0); MCV 90 fL (80-95); Platelet Count 300 10^3/uL (130-400); RDW 13.2 % (11.7-14.6); RDW-SD 43.3 fL; WBC 6.39 10^3/uL (4.4-10.8)
[2023-07-27 15:38] LABS: ALT 44 U/L (14-59); AST 23 U/L (15-37); Alkaline Phosphatase 97 U/L (46-116); Anion Gap 7.1 mmol/L (3-11); BUN 14 mg/dL (7-18); Bilirubin, Total 0.6 mg/dL (0.2-1.0); CO2 28.9 mmol/L (21.0-32.0); CREATININE 0.9 mg/dL (0.55-1.02); Calcium 9.1 mg/dL (8.5-10.1); Calculated LDL 152 mg/dL (<100); Chloride 104 mmol/L (98-107); Cholesterol 230 mg/dL (<200); Estimated GFR 68.35 (mL/min/1.73m2); Glucose 108 mg/dL (74-106); HDL Cholesterol 52 mg/dL (40-60); Potassium 4.3 mmol/L (3.5-5.1); Sodium 140 mmol/L (136-145); Triglyceride 133 mg/dL (<150)
[2023-07-27 15:56] LABS: Hemoglobin A1C 5.9 % (<5.7)
[2023-07-27 16:19] LABS: Vitamin D 25 Total 34.8 ng/mL (30-100)
== END 2023-07-27 08:42 | disposition home or self-care (01) ==
LOC: NCHCN 08:41
PROVIDERS: PCP Family Medicine; Visit Provider Family Medicine
DX: R73.03 Prediabetes (principal); E55.9 Vitamin D deficiency, unspecified; K76.0 Fatty (change of) liver, not elsewhere classified; R79.89 Other specified abnormal findings of blood chemistry
CPT/HCPCS: 80053; 80061; 82306; 85027; 83036

== ENCOUNTER → 2023-08-18 00:58 | Outpatient (CLI) | payer MEDICARE, SELFPAY ==
--- NOTE | 2023-08-18 | DI.DEXA_ITS ---
Exam(s) XR DEXA BONE DENSITY W/WO LORRAINE EXAM: XR DEXA BONE DENSITY W/WO LORRAINE CLINICAL HISTORY: SENILE OSTEOPOROSIS, M81.0 TECHNIQUE: Routine DEXA evaluation of the lumbar spine, hip, or forearm. COMPARISON: CR XR DEXA BONE DENSITY W/WO LORRAINE from 10/07/2020 FINDINGS: Performed on a Hologic unit. Lateral image: No compression fracture evident. Lumbar Spine total T-score: -2.6 Hip total T-score:-1.5 Independent reading at the level of the femoral neck yields T-score of -2.9 Forearm total T-score: -3.1 IMPRESSION: Bone mineral density measures in the osteoporosis range. Fracture risk is high. Note: Any spine fracture indicates 5x risk for subsequent spine fracture and 2x risk for subsequent h ip fracture. World Health Organization criteria for BMD interpretation classify patients: Normal...... T- Score at or above -1.0 Osteopenic... T- Score between -1.0 and -2.5 Osteoporosis... T-Score at or below -2.5
== END ==
PROVIDERS: PCP Family Medicine; Visit Provider Family Medicine
DX: M81.0 Age-related osteoporosis without current pathological fracture (principal); Z13.820 Encounter for screening for osteoporosis
CPT/HCPCS: 77080

== ENCOUNTER → 2023-08-31 08:49 | Outpatient (BNVA) | payer MEDICARE, SELFPAY | PROVIDERS: PCP Family Medicine; Visit Provider Nurse Practitioner Gerontology | DX: R82.71 Bacteriuria (principal) | CPT/HCPCS: 81003; 99213 ==

== ENCOUNTER 2024-07-27 10:04 | Outpatient (REF) | payer MEDICARE, SELFPAY ==
--- OUTSIDE RECORDS SUMMARY | 2024-07-27 10:05 | XMS_ITS | Encounter Summary ---
Author Organization [facility] Address [address] [place] [address] Care Team Providers Care Wine Bottle Inspector Name Role Phone Jeni Mcgovern MD Primary Care Provider [phone] Encounter Details Date Type Department Care Team (Latest Contact Info) Description 10/25/2017 7:49 EDT - 10/25/2017 23:59 EDT Hospital Encounter [address] [address] Renu Merino MD Discharge Disposition: Home or Self Care Social History Tobacco Use Types Packs/Day Years Used Date Smoking Tobacco: Never Assessed Comments Unknown Sex and Gender Information Value Date Recorded Sex Assigned at Not on file Legal Sex Female 17:35 EST Gender Identity Not on file Sexual Orientation Not on file documented as of this encounter Discharge Disposition Disposition Code Departure Means Destination Home or Self Prison documented in this encounter Plan of Treatment Not on file documented as of this encounter Visit Diagnoses Not on filedocumented in this encounter Care Teams Wine Bottle Inspector Relationship Specialty Start Date End Date Jeni Mcgovern MD [address] [place] [phone] PCP - General 11/12/09 documented as of this encounter
--- OUTSIDE RECORDS SUMMARY | 2024-07-27 10:05 | XMS_ITS | Encounter Summary ---
Author Organization [facility] Address [address] [place] [address] Care Team Providers Care Business Operations Manager Name Role Phone Jeni Mcgovern MD Primary Care Provider [phone] Encounter Details Date Type Department Care Team (Latest Contact Info) Description 04/03/2018 15:21 EDT - 04/03/2018 23:59 EDT Hospital Encounter [address] [address] Renu Merino MD Discharge Disposition: Home or [...] on filedocumented in this encounter Care Teams Business Operations Manager Relationship Specialty Start Date End Date Jeni Mcgovern MD [employer] [address] [phone] PCP - General 11/12/09 documented as of this encounter
--- OUTSIDE RECORDS SUMMARY | 2024-07-27 10:05 | XMS_ITS | Encounter Summary ---
Author Organization [facility] Address [address] [place] [address] Care Team Providers Care Shipping Helper Name Role Phone Jeni Butler MD Primary Care Provider [phone] Encounter Details Date Type Department Care Team (Late st Contact Info) Description 04/03/2018 Results Only [facility]- [facility] [phone] Jarett Griffin, [address] [place] [address] Social History Tobacco Use Types Packs/Day Years Used Date Smoking Tobacco: Never Assessed Comments Unknown Sex and Gender Information Value Date Recorded Sex Assigned at Not on file Legal Sex Female 17:35 EST Gender Identity Not on file Sexual Orientation Not on file documented as of this encounter Plan of Treatment Not on file documented as of this encounter Procedures Procedure Name Priority Date/Time Associated Diagnosis Comments SURGICAL PATHOLOGY Routine 04/03/2018 23 :18 EDT documented in this encounter Results * SURGICAL PATHOLOGY (04/03/2018 23:18 EDT) Pathology Report: SURGICAL PATHOLOGY REPORT Reports generated via electronic interface contain original data; however they are lacking the format of the original report. Caution should be taken when reading/interpret ing unformatted reports. Name: ? TALIA LESLIE ? Accession #: ? [id number] ? : ? 1950 (Age: 67) ??F ? Collect Date: ? 04/03/2018 ? Location: ? [facility] ? Receive Date: ? 04/03/2018 ? Provider: JARETT HAWKINS Copy to: JENI BUTLER MD ? Final Pathologic Diagnosis: SKIN OF BUD, RIGHT SUPERIOR, SHAVE BIOPSY: - Seborrheic keratosis. Microscopic Description: The stratum corneum is thickened by laminated orthohyperkeratos is. ??The epidermis is hyperplastic with papillomatosis and acanthosis. ??The keratinocytes have a basaloid appearance with round regular nuclei. ??(Dr. Burks)/jds Document reviewed and electronically signed by: ROSANNE BURKS MD Report ??Date: 04/05/2018 12:24 By the signature above, the attending physician certifies that he/she has personally conducted a gross and/or microscopic examination of the described specimens and rendered or confirmed the above diagnosis. Specimen(s) Received: Right superior 0.5 cm helix Clinical History: Fax results to: [phone]; clinical diagnosis code: D49.2 Gross Description: ? Received in formalin labelled with proper patient identification (initials I, K) and right superior helix is a 0.5 x 0.4 x 0.1 cm ovoid shave of granular hauser-white skin. The margin is inked blue. The specimen is bisected and entirely submitted in 1. SHRUTHI Foss (ASCP) 04/04/2018 7:53 AM End of Report [facility] 04/03/2018 23:1 8 EDT 04/03/2018 23:18 EDT us Jarett HAWKINS PATHOLOGY ORDERABLES Final Result [facility] [address] [place] [address] documented in this encounter Visit Diagnoses Not on filedocumented in this encounter Care Teams Shipping Helper Relationship Specialty Start Date End Date Jeni Butler MD [address] [place] [phone] PCP - General 11/12/09 documented as of this encounter
--- OUTSIDE RECORDS SUMMARY | 2024-07-27 10:05 | XMS_ITS | Clinical Summary ---
Author Organization [facility] Address [address] [place] [address] Care Team Providers Care Four Slide Machine Setter Name Role Phone Jeni Mcgovern MD Primary Care Provider [phone] Social History Tobacco Use Types Packs/Day Years Used Date Smoking Tobacco: Never Assessed Interpersonal Safety Answer Date Record ed Physically Hurt Never 02/10/2020 Verbally Threaten Not on file 02/10/2020 Comments Unknown Sex and Gender Information Value Date Recorded Sex Assigned at Not on file Legal Sex Female 17:35 EST Gender Identity Not on file Sexual Orientation Not on file Plan of Treatment Health Maintenance Due Date Last Done Comments Fall Risk Screening 2017 COVID-19 Vaccine ( season) 2024 RSV Immunization ( o r 60+ Years) (1 - 1-dose 75+ series) 2027 Hepatitis C Screen Completed 01/07/2020 Procedures Procedure Name Priority Date/Time Associated Diagnosis Comments HEPATITIS C AB W REFLEX TO HCV RNA BY PCR Routine 01/07/2020 13:13 EDT from Last 3 Months or Most Recently Relevant to Health Maintenance Results * HEPATITIS C AB W REFLEX TO HCV RNA BY PCR (01/07/2020 13:13 EDT) Hep C Antibody Negative Negative 01/09/2020 11:51 EDT [facility] Blood VENOUS BLOOD / Unknown 01/07/2020 13:13 EDT 01/08/2020 16:15 EDT us Provider Outr Resulting Lab CHEMISTRY & BLOOD GA S ORDERABLES Final Result [facility] [address] [place] [address] from Last 3 Months or Most Recently Relevant to Health Maintenance Insurance [facility] MEDIC[facility] Care Teams Four Slide Machine Setter Relationship Specialty Start Date End Date Jnei Mcgovern MD [address] [place] [phone] PCP - General 11/12/09
--- OUTSIDE RECORDS SUMMARY | 2024-07-27 10:05 | XMS_ITS | Encounter Summary ---
Author Organization [facility] Address [address] [place] [address] Care Team Providers Care Furniture Mover Helper Name Role Phone Jeni Mcgovern MD Primary Care Provider [phone] Encounter Details Date Type Department Care Team (Late st Contact Info) Description 06/08/2023 Lab Requisition [facility] Pathology & Laboratory Medicine - [address] [address] Steff Nixon MD [address] [place] [address], [address] [place] [phone] Neoplasm of uncertain behavior of skin Social History Tobacco Use Types Packs/Day Years [...] Priority Date/Time Associated Diagnosis Comments SURGICAL PATHOLOGY Today 06/07/2023 11 :21 EST Neoplasm of uncertain behavior of skin documented in this encounter Results * SURGICAL PATHOLOGY (06/07/2023 11:21 EST) Note to Patient The following pathology results have been interpreted by your pathologist and may be available to you before your health provider has had the opportunity to review them. Please allow time for your provider to receive these results and explore management options, if applicable. 06/08/2023 16:09 [facility] Final Diagnosis A. SKIN OF CUTANEOUS LIP, LEFT UPPER, SHAVE BIOPSY: - Solar lentigo. 06/08/2023 16:09 [facility] Attestation By the signature below, the attending physician certifies that they have 1) personally conducted a gross and/or microscopic examination of the described specimen(s), and/or personally interpreted the results of laboratory testing of the described specimen(s), and 2) personally rendered or confirmed the above diagnosis. 06/08/2023 16:09 [facility] at 1609 Clinical History 1 cm irregular hauser and brown patch with negative pigment network; DDx: Neoplasm of uncertain behavior vs melanoma vs AK vs ISK; clinical diagnosis code: D48.5 06/08/2023 16:09 [facility] Gross Description A. Received in formalin labelled with proper patient identification (initials I, K) and left upper cutaneous lip are 2 irregular portions of mottled brown skin (1.0 x 0.4 by less than 0.1 cm and 0.3 x 0.2 by less than 0.1 cm). The margins are inked blue. The larger tissue is bisected and entirely submitted in A1 and the smaller tissue is submitted intact in A2. Lisa Modi 06/08/2023 8:07 06/08/2023 16:09 [facility] Performing Lab [facility] 06/08/2023 16:09 [facility] Scanned Images 06/08/2023 16:09 [facility] Tissue LIP STRUCTURE / Unknown 06/07/2023 11:21 EST 06/08/2023 7:27 EST us Steff Nixon MD PATHOLOGY ORDERABLES Final Res ult [facility] [address] [place] [address] documented in this encounter Visit Diagnoses Diagnosis Neoplasm of uncertain behavior of skin documented in this encounter Care Teams Furniture Mover Helper Relationship Specialty Start Date End Date Jeni Mcgovern MD [address] [place] [phone] PCP - General 11/12/09 documented as of this encounter
--- OUTSIDE RECORDS SUMMARY | 2024-07-27 10:05 | XMS_ITS | Encounter Summary ---
Author Organization [facility] Address [address] [place] [address] Care Team Providers Care Ready To Wear Department Manager Name Role Phone Jeni Mcgovern MD Primary Care Provider [phone] Encounter Details Date Type Department Care Team (Late st Contact Info) Description 11/25/2022 Lab Requisition [facility] Pathology & Laboratory Medicine - [address] [address] Jamal Kaplan MD [address] [place] [address], [address] [place], [place] [id number] Encounter for screening for malignant neoplasm of colon Social History Tobacco Use Types Packs/Day Years [...] Date/Time Associated Diagnosis Comments SURGICAL PATHOLOGY Today 11/25/2022 7:40 EDT Encounter for screening for malignant neoplasm of colon documented in this encounter Results * SURGICAL PATHOLOGY (11/25/2022 7:40 EDT) Note to Patient The following pathology results have been interpreted by your pathologist and may be available to you before your health provider has had the opportunity to review them. Please allow time for your provider to receive these results and explore management options, if applicable. 11/29/2022 19:47 [facility] Final Diagnosis A. COLON, ASCENDING, POLYP, BIOPSY: - Colonic mucosa with no significant diagnostic abnormality. - Deeper levels examined. 11/29/2022 19:47 [facility] Attestation By the signature below, the attending physician certifies that they have 1) personally conducted a gross and/or microscopic examination of the described specimen(s), and/or personally interpreted the results of laboratory testing of the described specimen(s), and 2) personally rendered or confirmed the above diagnosis. 11/29/2022 19:47 [facility] at 1947 Clinical History Colon polyp 11/29/2022 19:47 [facility] Gross Description A. Received in formalin labelled with proper patient identification (initials I, K) and 1. Ascending colon polyp is a single transparent hauser wispy tissue (0.8 x 0.2 by less than 0.1 cm). Submitted intact in A1. Lisa Modi 11/26/2022 8:44 11/29/2022 19:47 [facility] Performing Lab [facility] 11/29/2022 19:47 [facility] Scanned Images 11/29/2022 19:47 [facility] Tissue ASCENDING COLON STRUCTURE / Unknown 11/25/2022 7:40 EDT 11/25/2022 17:42 EDT us Jamal Kaplan MD PATHOLOGY ORDERABLES Final Resu lt [facility] [address] [place] [address] documented in this encounter Visit Diagnoses Diagnosis Encounter for screening for malignant neoplasm of colon Special screening for malignant neoplasms, colon documented in this encounter Care Teams Ready To Wear Department Manager Relationship Specialty Start Date End Date Jeni Mcgovern MD [address] [place] [phone] PCP - General 11/12/09 documented as of this encounter
--- OUTSIDE RECORDS SUMMARY | 2024-07-27 10:05 | XMS_ITS | Encounter Summary ---
Author Organization [facility] Address [address] [place] [address] Care Team Providers Care Certified Travel Counselor Name Role Phone Jeni Butler MD Primary Care Provider [phone] Encounter Details Date Type Department Care Team (Late st Contact Info) Description 05/25/2018 Results Only [facility]- [facility] [phone] Jeni Butler MD [address] [phone] Social History Tobacco Use Types Packs/Day Years [...] Procedure Name Priority Date/Time Associated Diagnosis Comments PAP TEST- RESULT ONLY Routine 05/25/2018 0:00 EST documented in this encounter Results * PAP TEST- RESULT ONLY (05/25/2018 0:00 EST) Pathology Report: CYTOPATHOLOGY REPORT Reports generated via electronic interface contain original data; however they are lacking the format of the original report. Caution should be taken when reading/interpreti ng unformatted reports. Name: ? TALIA LESLIE ? Accession #: ? [id number] ? : ? 1950 (Age: 68) ??F ?Collect Date: ? 05/25/2018 ? Location: ? [facility] ? Receive Date: ? 05/26/2018 ? Provider: JENI BUTLER MD Copy to: ? Final Report SPECIMEN ADEQUACY ? Satisfactory for Evaluation - transformation zone component present GENERAL CATEGORIZATION ? Negative for Intraepithelial Lesion or Malignancy ?? Last Menstrual Period: years Other: Additional clinical information: Z00.00 Z12.4 Z11.51 Specimen/Source: ??Pap Test, Cervix, ThinPrep Imaging System with manual evaluation Document reviewed and electronically signed by: ? MATTHEW Pool(ASCP) ? Report ??Date: 06/06/2018 13:34 HPV with Pap Test ? Date Ordered: ? 06/06/2018 ? Status: ?? Signed Out ?Date Complete: ? 06/08/2018 ? By: ??System Interface ? Date Reported: ? 06/08/2018 ? Interpretation RESULT: Negative for HPV. No E6 or E7 mRNA is detected from HPV types 16,18,31,33,35, 39,45,51,52,56,58, 59,66, and 68 by filter helper mediated amplification. Comments Document reviewed and electronically signed by: ? System Interface ? Report date: 06/08/2018 By the signature above, the attending physician certifies that he/she has personally conducted a gross and/or microscopic examination of the described specimens and rendered or confirmed the above diagnosis. End of Report [facility] 05/25/2018 05/26/2018 us Jeni Butler MD PATHOLOGY ORDERABLES Final Resul t [facility] [address] [place] [address] documented in this encounter Visit Diagnoses Not on filedocumented in this encounter Care Teams Certified Travel Counselor Relationship Specialty Start Date End Date Jeni Butler MD [address] [place] [phone] PCP - General 11/12/09 documented as of this encounter
--- OUTSIDE RECORDS SUMMARY | 2024-07-27 10:05 | XMS_ITS | Referral Summary ---
Author Organization [facility] Address [address] [place] [address] Care Team Providers Care Civil Engineering Manager Name Role Phone Jeni Mcgovern MD Primary Care Provider [phone] Social History Tobacco Use Types Packs/Day Years Used Date Smoking Tobacco: Never Assessed Interpersonal Safety Answer Date Record ed Physically Hurt Never 02/10/2020 Verbally Threaten Not on file 02/10/2020 Comments Unknown Sex and Gender Information Value Date Recorded Sex Assigned at Not on file Legal Sex Female 17:35 EST Gender Identity Not on file Sexual Orientation Not on file Plan of Treatment Not on file Procedures Procedure Name Priority Date/Time Associated Diagnosis Comments HEPATITIS C AB W REFLEX TO HCV RNA BY PCR Routine 01/07/2020 13:13 EDT from Last 3 Months or Most Recently Relevant to Health Maintenance Results * HEPATITIS C AB W REFLEX TO HCV RNA BY PCR (01/07/2020 13:13 EDT) Hep C Antibody Negative Negative 01/09/2020 11:51 EDT [facility] Blood VENOUS BLOOD / Unknown 01/07/2020 13:13 EDT 01/08/2020 16:15 EDT us Provider Outr Resulting Lab CHEMISTRY & BLOOD GA S ORDERABLES Final Result [facility] [address] [place] [address] from Last 3 Months or Most Recently Relevant to Health Maintenance Insurance [facility] MEDIC[facility] Care Teams Civil Engineering Manager Relationship Specialty Start Date End Date Jeni Mcgovern MD [address] [place] [phone] PCP - General 11/12/09
--- OUTSIDE RECORDS SUMMARY | 2024-07-27 10:05 | XMS_ITS | Encounter Summary ---
Author Organization [facility] Address [address] [place] [address] Care Team Providers Care Rifle Case Repairer Name Role Phone Jeni Mcgovern MD Primary Care Provider Encounter Details Date Type Department Care Team (Late st Contact Info) Description 07/02/2020 Lab Requisition [facility] Pathology & Laboratory Medicine - [facility] [address] [place] [address] Maximo Castillo, PharmD [address] [place] [phone] Contact with and (suspected) exposure to other viral communicable diseases Social History Tobacco Use Types Packs/Day Years [...] Procedure Name Priority Date/Time Associated Diagnosis Comments ZZCOVID-19 TEST [facility] PCR Today 07/02/2020 10:45 EST Contact with and (suspected) exposure to other viral communicable diseases COVID-19 TESTING Today 07/02/2020 10:4 5 EST Contact with and (suspected) exposure to other viral communicable diseases documented in this encounter Results * COVID-19 TEST [facility] PCR (07/02/2020 10:45 EST) Swab ENTIRE NASOPHARYNX / Unknown Swab / Unknown 07/02/2020 10:45 EST 07/02/2020 20:55 EST Maximo Castillo PharmD MICROBIOLOGY - GENERAL O RDERABLES Final Result Performing Organization Address [facility] Co de Phone Number [facility] [address] [place] [address] * COVID-19 TESTING (07/02/2020 10:45 EST) COVID-19 rt-PCR Result Negative Negative 07/03/2020 12:05 EST [facility] Comment: This test has not been FDA cleared or approved. This test has been authorized by FDA under an EUA for use by authorized laboratories. This test has been authorized only for detection of nucleic acid from 2019-nCoV, not for any other viruses or pathogens. This test is only authorized for the duration of the declaration that circumstances exist justifying the authorization of emergency use of in vitro diagnostic tests for detection and/or diagnosis of 2019-nCoV under section 564(b)(1) of Act, 21 U.S.C ?? 360bbb-3(b) (1), unless the authorization is terminated or revoked sooner. Negative results do not preclude 2019-nCoV infection and should not be used as the sole basis for treatment or other patient management decisions. Negative results must be combined with clinical observations, patient history, and epidemiological information. Performed on the Quantuvisher Fusion instrument Performing Lab [place] [facility] 07/03/2020 12:05 EST [facility] Swab ENTIRE NASOPHARYNX / Unknown Swab / Unknown 07/02/2020 10:45 EST 07/02/2020 20:55 EST us Maximo Castillo PharmD MICROBIOLOGY - GENERAL O RDERABLES Final Result Performing Organization Address City/[facility]/ZIP Co de Phone Number [facility] [address] [place] [address] documented in this encounter Visit Diagnoses Diagnosis Contact with and (suspected) exposure to other viral communicable diseases documented in this encounter Care Teams Rifle Case Repairer Relationship Specialty Start Date End Date Jeni Mcgovern MD [address] [place] [phone] PCP - General 11/12/09 documented as of this encounter
--- OUTSIDE RECORDS SUMMARY | 2024-07-27 10:05 | XMS_ITS | Encounter Summary ---
Author Organization [facility] Address [address] [place] [address] Care Team Providers Care Fashion Buyer Name Role Phone Jeni Mcgovern MD Primary Care Provider Encounter Details Date Type Department Care Team (Late st Contact Info) Description 01/08/2020 Lab Requisition [facility] Pathology & Laboratory Medicine - [address] [address] Outr Resulting Lab, Provider Social History Tobacco Use Types Packs/Day Years [...] RNA BY PCR Routine 01/07/2020 13:13 EDT HEPATITIS A ANTIBODY IGM Today 01/07/2020 13:13 EDT HEPATITIS A TOTAL ANTIBODY W REFLEX Routine 01/07/2020 13:13 EDT HEPATITIS B SURFACE ANTIBODY Routine 01/07/2020 13:13 EDT HEPATITIS B SURFACE ANTIGEN Routine 01/07/2020 13:13 EDT documented in this encounter Results * HEPATITIS A ANTIBODY IGM (01/07/2020 13:13 EDT) Pathologist [facility] Hepatitis A Antibody, IgM Negative Negative 01/10/2020 9:51 EDT [facility] Blood VENOUS BLOOD / Unknown 01/07/2020 13:13 EDT 01/08/2020 16:15 EDT Narrative [facility] - 01/10/2020 9:51 EDT The results of this assay can be falsely lowered due to the consumption of Biotin. Provider Outr Resulting Lab CHEMISTRY & BLOOD GA S ORDERABLES Final Result Performing Organization Address [facility] Co de Phone Number [facility] [address] [place] [address] * HEPATITIS B SURFACE ANTIBODY (01/07/2020 13:13 EDT) [facility] Hep B Surface Ab, Quantitative 4.8 See Note mIU/mL 01/09/2020 11:14 EDT [facility] Comment: Reference Range for Hep B Surface Ab, Quant: Positive: >= 10.0 mIU/mL Negative: ??< 10.0 mIU/mL Patient is presumed to not be immune to infection with Hepatitis B Virus. Hep B Surface Ab, Qualitative Negative See Note 01/09/2020 11:14 EDT [facility] Comment: Reference Range for Hep B Surface Ab, Qual: Unvaccinated: ??Negative Vaccinated: ??Positive Blood VENOUS BLOOD / Unknown 01/07/2020 13:13 EDT 01/08/2020 16:15 EDT Provider Outr Resulting Lab CHEMISTRY & BLOOD GA S ORDERABLES Final Result Performing Organization Address [facility]/ZIP Co de Phone Number [facility] [address] [place] [address] * HEPATITIS B SURFACE ANTIGEN (01/07/2020 13:13 EDT) [facility] Hep B Surface Ag Negative Negative 01/09/2020 11:12 EDT [facility] Blood VENOUS BLOOD / Unknown 01/07/2020 13:13 EDT 01/08/2020 16:15 EDT us Provider Outr Resulting Lab CHEMISTRY & BLOOD GA S ORDERABLES Final Result Performing Organization Address City/[facility]/ZIP Co de Phone Number [facility] [address] [place] [address] * HEPATITIS C AB W REFLEX TO HCV RNA BY PCR (01/07/2020 13:13 EDT) Hep C Antibody Negative Negative 01/09/2020 11:51 EDT [facility] Blood VENOUS BLOOD / Unknown 01/07/2020 13:13 EDT 01/08/2020 16:15 EDT us Provider Outr Resulting Lab CHEMISTRY & BLOOD GA S ORDERABLES Final Result Performing Organization Address [facility] Co de Phone Number [facility] [address] [place] [address] * (ABNORMAL) HEPATITIS A TOTAL ANTIBODY W REFLEX (01/07/2020 13:13 EDT) Hepatitis A Antibody, Total Positive(A ) Negative 01/09/2020 11:59 EDT [facility] Blood VENOUS BLOOD / Unknown 01/07/2020 13:13 EDT 01/08/2020 16:15 EDT Narrative [facility] - 01/09/2020 11:59 EDT The result of this assay can be falsely elevated (Positive) due to the consumption of Biotin. us Provider Outr Resulting Lab CHEMISTRY & BLOOD GA S ORDERABLES Final Result Performing Organization Address [facility] Co de Phone Number [facility] [address] [place] [address] documented in this encounter Visit Diagnoses Not on filedocumented in this encounter Care Teams Fashion Buyer Relationship Specialty Start Date End Date Jeni Mcgovern MD [address] [place] [phone] PCP - General 11/12/09 documented as of this encounter
--- OUTSIDE RECORDS SUMMARY | 2024-07-27 10:05 | XMS_ITS | Encounter Summary ---
Author Organization [facility] Address [address] [place] [address] Care Team Providers Care Practice Consultant Name Role Phone Jeni Butler MD Primary Care Provider [phone] Encounter Details Date Type Department Care Team (Late st Contact Info) Description 10/25/2017 Results Only [facility] [phone] Elmer Frances MD [address] [place] [phone] Social History Tobacco Use Types Packs/Day Years [...] Date/Time Associated Diagnosis Comments SURGICAL PATHOLOGY Routine 10/25/2017 16 :03 EDT documented in this encounter Results * SURGICAL PATHOLOGY (10/25/2017 16:03 EDT) Pathology Report: SURGICAL PATHOLOGY REPORT Reports generated via electronic interface contain original data; however they are lacking the format of the original report. Caution should be taken when reading/interpret ing unformatted reports. Name: ? TALIA LESLIE ? Accession #: ? [id number] ? : ? 1950 (Age: 67) ??F ? Collect Date: ? 10/25/2017 ? Location: ? [facility] ? Receive Date: ? 10/25/2017 ? Provider: ELMER FRANCES MD Copy to: JENI BUTLER MD ? Final Pathologic Diagnosis: CECAL POLYP, BIOPSY: - ?Superficial fragment of tubular adenoma. - ?Deeper levels examined. Document reviewed and electronically signed by: JAKOB ROBBINS MD Report ??Date: 10/26/2017 17:15 By the signature above, the attending physician certifies that he/she has personally conducted a gross and/or microscopic examination of the described specimens and rendered or confirmed the above diagnosis. Specimen(s) Received: Cecal polyp Clinical History: Screening for colon cancer Gross Description: ? Received in formalin labelled with proper patient identification (initials I, K) and cecal polyp is a fragment of pink-red tissue (0.3 x 0.3 x 0.1 cm). The specimen is submitted entirely in 1. SHRUTHI Whitman (ASCP) 10/25/2017 4:16 PM End of Report [facility] 10/25/2017 16:0 3 EDT 10/25/2017 16:03 EDT us Elmer Frances MD PATHOLOGY ORDERABLES Fin al Result [facility] [address] [place] [address] documented in this encounter Visit Diagnoses Not on filedocumented in this encounter Care Teams Practice Consultant Relationship Specialty Start Date End Date Jeni Butler MD [address] [place] [phone] PCP - General 11/12/09 documented as of this encounter
--- OUTSIDE RECORDS SUMMARY | 2024-07-27 10:05 | XMS_ITS | Encounter Summary ---
Author Organization [facility] Address [address] [place] [address] Care Team Providers Care Painter And Body Work Name Role Phone Jeni Mcgovern MD Primary Care Provider [phone] Encounter Details Date Type Department Care Team (Late st Contact Info) Description 07/24/[address] [facility] Pathology & [place] [address] Renu Merino MD Social History Tobacco Use Types Packs/Day Years [...] Procedure Name Priority Date/Time Associated Diagnosis Comments PTH INTACT Routine 07/23/2019 15:24 EST documented in this encounter Results * PTH INTACT (07/23/2019 15:24 EST) Intact PTH 74 19 - 88 pg/mL 07/25/2019 12:[address] [facility] Blood VENOUS BLOOD / Unknown 07/23/2019 15:24 EST 07/24/2019 16:13 EST us Renu Crain MD CHEMISTRY & BLOOD GAS ORDERABLES Final Result [facility] [address] [place] [address] documented in this encounter Visit Diagnoses Not on filedocumented in this encounter Care Teams Painter And Body Work Relationship Specialty Start Date End Date Jeni Mcgovern MD [address] [place] [phone] PCP - General 11/12/09 documented as of this encounter
--- OUTSIDE RECORDS SUMMARY | 2024-07-27 10:05 | XMS_ITS ---
Author Organization Unknown [facility]ERGIES [facility] ADVERSE REACTIONS No information ASSESSMENT No information CHIEF COMPLAINT No information MEDICATIONS No information OBJECTIVE DATA No information PHYSICAL EXAMINATION No information TREATMENT PLAN Planned Care Start Date Provider Encounter for Check-up [id number] PROBLEMS No information RESULTS No information REVIEW OF SYSTEMS No information SUBJECTIVE DATA No information VITAL SIGNS No information
--- OUTSIDE RECORDS SUMMARY | 2024-07-27 10:06 | XMS_ITS | Encounter Summary ---
Author Organization [facility] Address [address] [place] [address] Care Team Providers Care Therapeutic Riding Instructor Name Role Phone Jeni Mcgovern MD Primary Care Provider [phone] Encounter Details Date Type Department Care Team (Late st Contact Info) Description 11/02/2010 Results Only [facility] [place] [facility] [address] [place], [place] [phone] Jeni Mcgovern MD [address] [place] [address] [place] [phone] Social History Tobacco Use Types Packs/Day Years Used Date Smoking Tobacco: Never Assessed Comments Unknown Sex and Gender Information Value Date Recorded Sex Assigned at Not on file Legal Sex Female 17:35 EST Gender Identity Not on file Sexual Orientation Not on file documented as of this encounter Plan of Treatment Pending Results Name Type Priority Associated Diagnoses Date /Time CYTOPATHOLOGY Pathology Routine 11/02/2010 0:00 EDT documented as of this encounter Procedures Procedure Name Priority Date/Time Associated Diagnosis Comments PAP TEST- RESULT ONLY Routine 11/02/2010 0:00 EDT documented in this encounter Results * PAP TEST- RESULT ONLY (11/02/2010 0:00 EDT) Pathology Report: CYTOPATHOLOGY REPORT ? Reports generated via electronic interface contain original data; ? however they are lacking the format of the original report. ? Caution should be taken when reading/interpreti ng unformatted reports. ? Name: ? MARIAMA, TALIA ? Accession #: ? [id number] ? : ? 1950 (Age: 60) ??F ?Collect Date: ? 11/02/2010 ? Location: ? [facility] ? Receive Date: ? 11/04/2010 ? Provider: JENI CARRIE MD ? Copy to: ? Final Report ? SPECIMEN ADEQUACY ? Satisfactory for Evaluation ? - transformation zone component present ? GENERAL CATEGORIZATION ? Negative for Intraepithelial Lesion or Malignancy ? INTERPRETATION ? Reactive cellular changes associated with inflammation present (includes ?? repair). ? Menstural/Pregnanc y Status: ??Post Menopausal ? Previous Gynecologic Pathology: ASC-US: 04/23/10 ? Yes: Epithelial cell abnromality ? Specimen/Source: ??Pap Test, Cervix/Endocervix, ThinPrep Imaging System with ? manual evaluation ? Document reviewed and electronically signed by: ? FELIPA C YAP MD ? Report ??Date: 11/11/2010 11:18 ? HPV with Pap Test ? Date Ordered: ? 11/11/2010 ? Status: ?? Signed Out ?Date Complete: ? 11/11/2010 ? By: ??System Interface ? Date Reported: ? 11/11/2010 ? Interpretation ? RESULT: Quantity not sufficient. ? Comments ? Document reviewed and electronically signed by: ? System Interface ? Report date: 11/11/2010 ? By the signature above, the attending physician certifies that he/she has ? personally conducted a gross and/or microscopic examination of the described ? specimens and rendered or confirmed the above diagnosis. ? End of Report ? [facility] 11/02/2010 11/04/2010 us Jeni Mcgovern MD PATHOLOGY ORDERABLES Final Resul t [facility] [address] [place] [address] documented in this encounter Visit Diagnoses Not on filedocumented in this encounter Care Teams Therapeutic Riding Instructor Relationship Specialty Start Date End Date Jeni Mcgovern MD [address] [place] [phone] PCP - General 11/12/09 documented as of this encounter
--- OUTSIDE RECORDS SUMMARY | 2024-07-27 10:06 | XMS_ITS | Encounter Summary ---
Author Organization [facility] Address [address] [place] [address] Care Team Providers Care Top Screw Name Role Phone Jeni Butler MD Primary Care Provider [phone] Encounter Details Date Type Department Care Team (Late st Contact Info) Description 02/26/2011 Results Only [facility] Services - [facility] [address] [place] [address] Jeni Butler MD [address] [place] [address] [place] [phone] Social History Tobacco Use Types Packs/Day [...] Date/Time Associated Diagnosis Comments SURGICAL PATHOLOGY Routine 02/26/2011 0:00 EDT documented in this encounter Results * SURGICAL PATHOLOGY (02/26/2011 0:00 EDT) Pathology Report: SURGICAL PATHOLOGY REPORT ? Reports generated via electronic interface contain original data; ? however they are lacking the format of the original report. ? Caution should be taken when reading/interpreting unformatted reports. ? Name: ? LESLIE, TALIA ? Accession #: ? [id number] ? : ? 1950 (Age: 60) ??F ? Collect Date: ? 02/26/2011 ? Location: ? [facility] ? Receive Date: ? 03/01/2011 ? Provider: JENI BUTLER MD ? Copy to: ? Final Pathologic Diagnosis: ? Skin of chest, mid, shave biopsy: ? - Seborrheic keratosis, irritated and inflamed. ? Microscopic Description: ? Orthohyperkeratosis and focal parakeratosis thicken the stratum corneum. ?? There is formation of horn pseudocysts. ??The epidermis is hyperplastic with ? acanthosis and papillomatosis. ??The keratinocytes have a basaloid appearance ? with squamous eddies in many areas. ??Within the dermis, there is a moderately ?? dense lymphohistiocytic infiltrate. ??The infiltrate extends into the epidermis ?? with concomitant vacuolar change and keratinocyte necrosis. ??(Dr. Burks)/sergo ? Document reviewed and electronically signed by: ? ROSANNE BURKS MD ? Report ??Date: 03/02/2011 16:49 ? By the signature above, the attending physician certifies that he/she has ? personally conducted a gross and/or microscopic examination of the described ? specimens and rendered or confirmed the above diagnosis. ? Specimen(s) Received: ? Shave biopsy lesion from mid chest ? Clinical History: ? Growing lesion anterior chest ? Gross Description: ? Received in formalin labelled Leslie, Talia and lesion from mid ? chest, shave biopsy is a 0.6 x 0.4 x 0.3 cm ovoid, lawrence-white, cobblestone ? papule. ??The margin is inked. ??The specimen is bisected and entirely submitted ?? in a single cassette. ??(Toy Valiente/sergo ? End of Report ? [facility] 02/26/2011 03/01/2011 19: 31 EDT us Jeni Butler MD PATHOLOGY ORDERABLES Final Resul t [facility] [address] [place] [address] documented in this encounter Visit Diagnoses Not on filedocumented in this encounter Care Teams Top Screw Relationship Specialty Start Date End Date Jeni Butler MD [address] [place] [phone] PCP - General 11/12/09 documented as of this encounter
--- OUTSIDE RECORDS SUMMARY | 2024-07-27 10:06 | XMS_ITS | Encounter Summary ---
Author Organization [facility] Address [address] [place] [address] Care Team Providers Care Science Analyst Name Role Phone Unavailable Primary Care Provider Unavailabl e Encounter Details Date Type Department Care Team (Late st Contact Info) Description 10/31/2009 Results Only [facility] Laboratory Services - [facility] ([facility]) [address] [place], [place] [address] Jeni Mcgovern MD [address] [phone] Social History Tobacco Use Types [...] Procedure Name Priority Date/Time Associated Diagnosis Comments HPV DETECTION, HIGH RISK TYPES Routine 10/31/2009 8:02 EDT CYTOPATHOLOGY Routine 10/31/2009 0:00 EDT documented in this encounter Results * HUMAN PAPILLOMA VIRUS DNA TEST (10/31/2009 8:02 EDT) Specimen Description Cervix, ThinPrep vial [facility] Result Negative for HPV types 16, 18, 31, 33, 35, 39, 45, 51, 52, 56, 58, 59, and 68. [facility] Report Status Final 11/17/2009 [facility] 10/31/2009 8:02 EDT 11/13/2009 8:02 EDT us Jeni Mcgovern MD MICROBIOLOGY - GENERAL ORDERABLE S Final Result [facility] [address] [place] [address] * CYTOPATHOLOGY (10/31/2009 0:00 EDT) Pathology Report: CYTOPATHOLOGY REPORT ? Reports generated via electronic interface contain original data; ? however they are lacking the format of the original report. ? Caution should be taken when reading/interpreti ng unformatted reports. ? Name: ? TALIA LESLIE ? Accession #: ? [id number] ? : ? 1950 (Age: 59) ??F ?Collect Date: ? 10/31/2009 ? Location: ? [facility] ? Receive Date: ? 11/03/2009 ? Provider: ?JENI CARRIE MD ? Copy to: ? Specimen/Source: ?Pap Test, Cervix/Endocervix, ThinPrep Imaging System ? with manual evaluation ? Last Menstrual Period: ? 06/09 ? Other: ? HPVA - HPV testing requested if ASC-US on the current ThinPrep Pap test. ? SPECIMEN ADEQUACY ? Satisfactory for Evaluation ? - transformation zone component present ? GENERAL CATEGORIZATION ? Epithelial Cell Abnormality ? INTERPRETATION ? Squamous Cell Abnormality - Atypical squamous cells, undetermined ? significance (ASC-US). ? EDUCATIONAL NOTES/RECOMMENDATI ONS ? [facility] recommends following the 2006 Consensus Guidelines for the Management of Women with Abnormal Cervical Cancer Screening Tests (GTD, ? 2007;11(4):201-222 ). ??Consensus guidelines are available online at ? www.ASCCP.org. ? Document reviewed and electronically signed by: ? Rupa L. Mcnulty, MD ? Report Date: ??11/12/2009 09:05 ? End of Report ? [facility] 10/31/2009 11/03/2009 us Jeni Mcgovern MD PATHOLOGY ORDERABLES Final Resul t [facility] [address] [place] [address] documented in this encounter Visit Diagnoses Not on filedocumented in this encounter
--- OUTSIDE RECORDS SUMMARY | 2024-07-27 10:06 | XMS_ITS | Encounter Summary ---
Author Organization [facility] Address [address] [place] [address] Care Team Providers Care Cash Room Clerk Name Role Phone Jeni Butler MD Primary Care Provider [phone] Encounter Details Date Type Department Care Team (Late st Contact Info) Description 04/15/2003 Results Only [facility] - Maple conversion [address] [place] [address] Jeni Butler MD 185 [facility] K[place] [address] [place] [phone] Social History Tobacco Use Types Packs/Day [...] Procedure Name Priority Date/Time Associated Diagnosis Comments CYTOPATHOLOGY Routine 04/15/2003 0:00 EDT documented in this encounter Results * CYTOPATHOLOGY (04/15/2003 0:00 EDT) Pathology Report: CYTOPATHOLOGY REPORT Reports generated via electronic interface contain original data; however they are lacking the format of the original report. Caution should be taken when reading/interpreti ng unformatted reports. Name: ? TALIA LESLIE ? Accession #: ? [id number] : ? 1950 (Age: 52) ??F ?Collect Date: ? 04/15/2003 Location: ? [facility] ? Receive Date: ? 04/17/2003 Provider: ?JENI BUTLER MD Copy to: ? Specimen/Source: ?ThinPrep Pap Test, Cervix/Endocervix Last Menstrual Period: ? 03/28/03 Other: ? HPVA - HPV testing requested if ASC-US on the current ThinPrep Pap test. ? SPECIMEN ADEQUACY ? Satisfactory for Evaluation - transformation zone component present GENERAL CATEGORIZATION ? Negative for Intraepithelial Lesion or Malignancy ? Document reviewed and electronically signed by: ? MATTHEW Gaspar(ASCP) ? Report Date: ??04/23/2003 08:15 End of Report [facility] 04/15/2003 04/17/2003 us Jeni Butler MD PATHOLOGY ORDERABLES Final Resul t [facility] [address] [place] [address] documented in this encounter Visit Diagnoses Not on filedocumented in this encounter Care Teams Cash Room Clerk Relationship Specialty Start Date End Date Jeni Butler MD [address] [place] [phone] PCP - General 11/12/09 documented as of this encounter
--- OUTSIDE RECORDS SUMMARY | 2024-07-27 10:06 | XMS_ITS | Encounter Summary ---
Author Organization [facility] Address [address] [place] [address] Care Team Providers Care Cut Roll Machine Offbearer Name Role Phone Jeni Butler MD Primary Care Provider [phone] Encounter Details Date Type Department Care Team (Late st Contact Info) Description 03/05/2002 Results Only [facility] - Maple conversion [address] [place] [address] Jeni Butler MD 185 [facility] [place] [address] [place] [phone] Social History Tobacco Use Types Packs/Day [...] Priority Date/Time Associated Diagnosis Comments CYTOPATHOLOGY Routine 03/05/2002 0:00 EDT documented in this encounter Results * CYTOPATHOLOGY (03/05/2002 0:00 EDT) Pathology Report: CYTOPATHOLOGY REPORT Reports generated via electronic interface contain original data; however they are lacking the format of the original report. Caution should be taken when reading/interpreti ng unformatted reports. Name: ? TALIA LESLIE ? Accession #: ? [id number] : ? 1950 (Age: 51) ??F ?Collect Date: ? 03/05/2002 Location: ? [facility] ? Receive Date: ? 03/07/2002 Provider: ?JENI BUTLER MD Copy to: ? Specimen/Source: ?ThinPrep Pap Test, Cervix/Endocervix Last Menstrual Period: ? 02/25/02 ? SPECIMEN ADEQUACY ? Satisfactory for Evaluation - transformation zone component present - scant squamous epithelial component secondary to excessive blood GENERAL CATEGORIZATION ? Negative for Intraepithelial Lesion or Malignancy ? Document reviewed and electronically signed by: ? Inna Feliz, ??SCT(ASCP) ? Report Date: ??03/08/2002 07:26 End of Report [facility] 03/05/2002 03/07/2002 us Jeni Butler MD PATHOLOGY ORDERABLES Final Resul t [facility] [address] [place] [address] documented in this encounter Visit Diagnoses Not on filedocumented in this encounter Care Teams Cut Roll Machine Offbearer Relationship Specialty Start Date End Date Jeni Butler MD [address] [phone] PCP - General 11/12/09 documented as of this encounter
--- OUTSIDE RECORDS SUMMARY | 2024-07-27 10:06 | XMS_ITS | Encounter Summary ---
Author Organization [facility] Address [address] [place] [address] Care Team Providers Care Mill Manager Name Role Phone Jeni Butler MD Primary Care Provider [phone] Encounter Details Date Type Department Care Team (Late st Contact Info) Description 08/15/2013 Results Only [facility] - [facility] ([facility] [address], [place] [phone] Jeni Butler MD [address] [place]A [address] [place] [phone] Social History Tobacco Use Types Packs/Day [...] Diagnosis Comments PAP TEST- RESULT ONLY Routine 08/15/2013 0:00 EST documented in this encounter Results * PAP TEST- RESULT ONLY (08/15/2013 0:00 EST) Pathology Report: CYTOPATHOLOGY REPORT Reports generated via electronic interface contain original data; however they are lacking the format of the original report. Caution should be taken when reading/interpreti ng unformatted reports. Name: ? TALIA LESLIE ? Accession #: ? [id number] ? : ? 1950 (Age: 63) ??F ?Collect Date: ? 08/15/2013 ? Location: ? [facility] ? Receive Date: ? 08/17/2013 ? Provider: JENI BUTLER MD Copy to: ? Final Report SPECIMEN ADEQUACY ? Satisfactory for Evaluation - transformation zone component present GENERAL CATEGORIZATION ? Negative for Intraepithelial Lesion or Malignancy INTERPRETATION ? Reactive cellular changes associated with inflammation present (includes repair). Last Menstrual Period: 2009 Specimen/Source: ??Pap Test, Cervix, ThinPrep Imaging System with manual evaluation Document reviewed and electronically signed by: ? FELIPA YAP MD ? Report ??Date: 08/24/2013 10:33 HPV with Pap Test ? Date Ordered: ? 08/23/2013 ? Status: ?? Signed Out ?Date Complete: ? 08/28/2013 ? By: ??System Interface ? Date Reported: ? 08/28/2013 ? Interpretation RESULT: Negative for HPV. No E6 or E7 mRNA is detected from HPV types 16,18,31,33,35, 39,45,51,52,56,58, 59,66, and 68 by liquid waste treatment plant operator mediated amplification. Comments Document reviewed and electronically signed by: ? System Interface ? Report date: 08/28/2013 By the signature above, the attending physician certifies that he/she has personally conducted a gross and/or microscopic examination of the described specimens and rendered or confirmed the above diagnosis. End of Report [facility] 08/15/2013 08/17/2013 us Jeni Butler MD PATHOLOGY ORDERABLES Final Resul t [facility] [address] [place] [address] documented in this encounter Visit Diagnoses Not on filedocumented in this encounter Care Teams Mill Manager Relationship Specialty Start Date End Date Jeni Butler MD [address] [place] [phone] PCP - General 11/12/09 documented as of this encounter
--- OUTSIDE RECORDS SUMMARY | 2024-07-27 10:06 | XMS_ITS | Encounter Summary ---
Author Organization [facility] Address [address] [place] [address] Care Team Providers Care Medical I D Sales Name Role Phone Jeni Butler MD Primary Care Provider [phone] Encounter Details Date Type Department Care Team (Late st Contact Info) Description 07/10/2007 Results Only [facility] - Maple conversion [address] [place] [address] Jeni Butler MD 185 [facility] [address] [place] [phone] Social History Tobacco Use Types Packs/Day [...] Priority Date/Time Associated Diagnosis Comments CYTOPATHOLOGY Routine 07/10/2007 0:00 EST documented in this encounter Results * CYTOPATHOLOGY (07/10/2007 0:00 EST) Pathology Report: CYTOPATHOLOGY REPORT Reports generated via electronic interface contain original data; however they are lacking the format of the original report. Caution should be taken when reading/interpreti ng unformatted reports. Name: ? TALIA LESLIE ? Accession #: ? [id number] : ? 1950 (Age: 57) ??F ?Collect Date: ? 07/10/2007 Location: ? [facility] ? Receive Date: ? 07/13/2007 Provider: ?JENI BUTLER MD Copy to: ? Specimen/Source: ?ThinPrep Pap Test, Cervix/Endocervix, processed on [employer] ThinPrep Imaging System, with manual evaluation Last Menstrual Period: ? 05/30/07 Other: ? HPVA - HPV testing requested if ASC-US on the current ThinPrep Pap test. ? SPECIMEN ADEQUACY ? Satisfactory for Evaluation - transformation zone component present - scant squamous epithelial component secondary to excessive blood GENERAL CATEGORIZATION ? Negative for Intraepithelial Lesion or Malignancy ? Document reviewed and electronically signed by: ? MATTHEW Hui(ASCP) ? Report Date: ??07/14/2007 09:23 End of Report [facility] 07/10/2007 07/13/2007 us Jeni Butler MD PATHOLOGY ORDERABLES Final Resul t [facility] [address] [place] [address] documented in this encounter Visit Diagnoses Not on filedocumented in this encounter Care Teams Medical I D Sales Relationship Specialty Start Date End Date Jeni Butler MD [address] [place] [phone] PCP - General 11/12/09 documented as of this encounter
--- OUTSIDE RECORDS SUMMARY | 2024-07-27 10:06 | XMS_ITS | Encounter Summary ---
Author Organization [facility] Address [address] [place] [address] Care Team Providers Care Contractor Buyer Name Role Phone Jeni Butler MD Primary Care Provider [phone] Encounter Details Date Type Department Care Team (Late st Contact Info) Description 04/02/2005 Results Only [facility] - Maple conversion [address] [place] [address] Jeni Butler MD 185 [facility] [place] [place] [phone] Social History Tobacco Use Types Packs/Day [...] Priority Date/Time Associated Diagnosis Comments CYTOPATHOLOGY Routine 04/02/2005 0:00 EDT documented in this encounter Results * CYTOPATHOLOGY (04/02/2005 0:00 EDT) Pathology Report: CYTOPATHOLOGY REPORT Reports generated via electronic interface contain original data; however they are lacking the format of the original report. Caution should be taken when reading/interpreti ng unformatted reports. Name: ? TALIA MAGANA ? Accession #: ? [id number] : ? 1950 (Age: 54) ??F ?Collect Date: ? 04/02/2005 Location: ? [facility] ? Receive Date: ? 04/07/2005 Provider: ?JENI BUTLER MD Copy to: ? Specimen/Source: ?ThinPrep Pap Test, Cervix/Endocervix, processed on [employer] ThinPrep Imaging System, with manual evaluation Last Menstrual Period: ? 03/16/05 Other: ? HPVA - HPV testing requested if ASC-US on the current ThinPrep Pap test. ? SPECIMEN ADEQUACY ? Satisfactory for Evaluation - transformation zone component present GENERAL CATEGORIZATION ? Negative for Intraepithelial Lesion or Malignancy ? Document reviewed and electronically signed by: ? MATTHEW Zhou(ASCP) ? Report Date: ??04/13/2005 10:36 End of Report [facility] 04/02/2005 04/07/2005 us Jeni Butler MD PATHOLOGY ORDERABLES Final Resul t [facility] [address] [place] [address] documented in this encounter Visit Diagnoses Not on filedocumented in this encounter Care Teams Contractor Buyer Relationship Specialty Start Date End Date Jeni Butler MD [address] [place] [phone] PCP - General 11/12/09 documented as of this encounter
--- OUTSIDE RECORDS SUMMARY | 2024-07-27 10:06 | XMS_ITS | Encounter Summary ---
Author Organization [facility] Address [address] [place] [address] Care Team Providers Care Membership Solicitor Name Role Phone Jeni Butler MD Primary Care Provider [phone] Encounter Details Date Type Department Care Team (Late st Contact Info) Description 03/10/2001 Results Only [facility] - Maple conversion [address] [place] [address] Jeni Butler MD 185 [facility] [address] [place] [phone] Social History Tobacco Use Types Packs/Day [...] Priority Date/Time Associated Diagnosis Comments CYTOPATHOLOGY Routine 03/10/2001 0:00 EDT documented in this encounter Results * CYTOPATHOLOGY (03/10/2001 0:00 EDT) Pathology Report: CYTOPATHOLOGY REPORT Reports generated via electronic interface contain original data; however they are lacking the format of the original report. Caution should be taken when reading/interpreti ng unformatted reports. Name: ? TALIA LESLIE ? Accession #: ? [id number] : ? 1950 (Age: 50) ??F ?Collect Date: ? 03/10/2001 Location: ? [facility] ? Receive Date: ? 03/15/2001 Provider: ?JENI BUTLER MD Copy to: ? Specimen/Source: ?ThinPrep Pap Test, Cervix/Endocervix Last Menstrual Period: ? 02/22/01 Menstrual/Pregnanc y Status: ? Post Previous Gynecologic Pathology: ? FLORY I LSIL: 1992 ? SPECIMEN ADEQUACY ? Satisfactory for evaluation. GENERAL CATEGORIZATION ? Within Normal Limits ? Document reviewed and electronically signed by: ? NAOMI Holliday(ASCP) ? Report Date: ??03/16/2001 10:51 End of Report [facility] 03/10/2001 03/15/2001 us Jeni Butler MD PATHOLOGY ORDERABLES Final Resul t [facility] [address] [place] [address] documented in this encounter Visit Diagnoses Not on filedocumented in this encounter Care Teams Membership Solicitor Relationship Specialty Start Date End Date Jeni Butler MD [address] [place] [phone] PCP - General 11/12/09 documented as of this encounter
[2024-07-27 15:25] LABS: Hemoglobin A1C 5.9 % (<5.7)
[2024-07-27 15:49] LABS: Vitamin D 25 Total 34.4 ng/mL (30-100)
== END 2024-07-27 10:05 | disposition home or self-care (01) ==
LOC: NCHCN 10:04
PROVIDERS: PCP Family Medicine; Visit Provider Family Medicine
DX: R73.03 Prediabetes (principal); E55.9 Vitamin D deficiency, unspecified
CPT/HCPCS: 82306; 83036

== ENCOUNTER 2024-08-21 02:07 | Outpatient (CLI) | payer MEDICARE, SELFPAY ==
--- NOTE | 2024-08-21 08:44 | DI.MAMMO_ITS ---
Exam(s) MAMMO SCREENING EXAM: MAMMO SCREENING CLINICAL HISTORY: Screening, Z12.31. TECHNIQUE: Bilateral full field digital CC and MLO mammographic images were obtained with 3D tomosyn thesis and utilizing computer aided detection (CAD). COMPARISON: Prior mammograms were reviewed. Prior left breast ultrasound of 10/20/2021 reviewed FINDINGS: The fibroglandular tissue pattern is again noted be moderately dense. No new right breast findings. Asymmetric density seen medially in left breast is unchanged from prior mammograms. There are no new spiculated masses nor new malignant appearing microcalcification groups. Benign luis rocalcifications in both breasts again noted. There is no significant architectural distortion nor skin thickening-retraction. IMPRESSION: No radiographic evidence of malignancy. Stable benign appearing findings. BI-RADS Category 2 - Benign Findings Breast Density - Category C - Heterogeneously dense Breast density Category C or D implies that the patient has dense breast tissue. Dense breast tissue can make it harder to find cancer on a mammogram. Dense breast tissue is also associated with an incr eased risk of breast cancer. This information about the result of the mammogram report was provided to the patient to raise their awareness. Use this report when you speak with the patient about their risks for breast cancer, which includes their family history. At that time, you may recommend additional screening tests (Ultrasoun d or MRI) as these tests may add significant information. A negative radiographic report should not delay biopsy if a dominant or clinically suspicious mass is present. Up to ten percent of cancers are not identified on mammography. A negative report may reinforce clinical impression. Adenosis and dense breasts may obscure an underlying neoplasm. False positive reports average 6 to 10%. Patient will receive a letter notifying them of these results.
== END 2024-08-21 02:27 ==
LOC: DI 02:07
PROVIDERS: PCP Family Medicine; Visit Provider Family Medicine
DX: Z12.31 Encounter for screening mammogram for malignant neoplasm of breast (principal); R92.333 Mammographic heterogeneous density, bilateral breasts; D24.1 Benign neoplasm of right breast; D24.2 Benign neoplasm of left breast
CPT/HCPCS: 77063; 77067

== ENCOUNTER → 2024-08-29 08:50 | Outpatient (BNVA) | payer MEDICARE, SELFPAY | PROVIDERS: PCP Family Medicine; Visit Provider Nurse Practitioner Gerontology | DX: R82.71 Bacteriuria (principal) | CPT/HCPCS: 81003; 99213 ==

== ENCOUNTER 2024-08-29 09:38 | Outpatient (REF) | payer MEDICARE, SELFPAY | END 2024-08-29 09:39 | disposition home or self-care (01) | LOC: LBN 09:38 | PROVIDERS: PCP Family Medicine; Visit Provider Nurse Practitioner Gerontology | DX: R82.71 Bacteriuria (principal) | CPT/HCPCS: 87077; 87086 ==

== ENCOUNTER 2025-04-23 10:33 | Outpatient (CLI) | payer MEDICARE, SELFPAY ==
--- NOTE | 2025-04-23 14:05 | DI.RAD_ITS ---
Exam(s) XR KNEE LT 3V AP,LAT,ANNE EXAM: XR KNEE LT 3V AP,LAT,ANNE CLINICAL HISTORY: CHRONIC PAIN OF L KNEE, M25.562. TECHNIQUE: 2D digital imaging was performed of the left knee. Three images were obtained. AP, lateral and PA tunnel views were obtained. COMPARISON: No exams were available for comparison FINDINGS: BONES: No acute fracture is present. No bony destructive lesion is seen. JOINTS: There is mild spurring of the posterior patella. The joint spaces are otherwise well maintained. No joint effusion is seen. No loose body. SOFT TISSUE: Normal. IMPRESSION: Minimal degenerative changes seen in the left knee. DATA REPOSITORY: RADIATION DOSE DELIVERED:
== END 2025-04-23 10:53 ==
LOC: DI 10:34
PROVIDERS: PCP Family Medicine; Visit Provider Family Medicine
DX: M25.562 Pain in left knee (principal)
CPT/HCPCS: 73562